=== PATIENT | male | born 1935 | race Caucasian/White ===

== ENCOUNTER 2020-02-28 17:56 | Inpatient (IN) | payer MEDICARE, BC ==
[~2020-02-28] VITALS: Ht 157.5 cm; Wt 55.1 kg
[2020-02-28 18:48] LABS: BASOPHILS 0.1 % (0-2); EOSINOPHILS 0.1 % (0-7); HEMATOCRIT 33.1 % (42.0-54.0); HEMOGLOBIN 10.1 g/dL (13.5-17.5); IMMATURE GRANULOCYTES 0.4 % (0-5); LYMPHOCYTES 5.5 % (15-50); MCH 28.5 pg (26.0-34.0); MCHC 30.5 g/dL (31.0-37.0); MCV 93.5 fL (80.0-100.0); MEAN PLATELET VOLUME 9.2 fL (7.4-10.4); MONOCYTES 11.6 % (2-11); NEUTROPHILS 82.3 % (40-80); PLATELET COUNT 442 10x3/uL (130-400); RBC 3.54 10x6/uL (4.20-6.10); RDW 15.5 % (11.5-14.5); WBC 15.8 10x3/uL (4.8-10.8)
[2020-02-28 18:57] LABS: INR 1.78 (0.85-1.17); PROTIME 20.5 SECONDS (11.6-15.0)
[2020-02-28 18:58] LABS: APTT 101.5 SECONDS (22.8-39.4)
[2020-02-28] MEDS ORDERED: CARAFATE1 G/10 ML PO (19:06)
[2020-02-28] MEDS ORDERED: FERROUS SULFAT325 MG PO (19:07)
[2020-02-28] MEDS ORDERED: LISINOPRIL5 MG PO (19:07)
[2020-02-28] MEDS ORDERED: ULTRAM50 MG PO (19:07)
[2020-02-28] MEDS ORDERED: FUROSEMIDE40 MG PO (19:07)
[2020-02-28] MEDS ORDERED: TOPROL XL50 MG PO (19:08)
[2020-02-28] MEDS ORDERED: LIPITOR10 MG PO (19:08)
[2020-02-28] MEDS ORDERED: ZOFRAN4 MG PO (19:09)
[2020-02-28] MEDS ORDERED: FAMOTIDINE10 MG PO (19:09)
--- NOTE | 2020-02-28 19:10 | NUR ---
BS REPORT TO ELVIA HEAD
[2020-02-28 19:21] LABS: CALC OSMOLALITY 334 mosm/kg (275-300); CARBON DIOXIDE 15.9 mmol/L (21.0-32.0); CHLORIDE - SERUM 114 mmol/L (98-107); CREATININE - SERUM 6.2 mg/dL (0.6-1.3); GLUCOSE 121 mg/dL (74-106); SODIUM 148 mmol/L (136-145); UREA NITROGEN 125 mg/dL (7-18); eGFR NON AFRICAN AMERICAN 9 mL/min (90-120)
[2020-02-28 19:27] LABS: BILIRUBIN NEGATIVE (NEGATIVE); GLUCOSE NEGATIVE (NEGATIVE); KETONE NEGATIVE (NEGATIVE); NITRITE NEGATIVE (NEGATIVE); SPECIFIC GRAVITY 1.015 (1.005-1.020); UROBILINOGEN NORMAL (NORMAL)
[2020-02-28 19:28] LABS: RED CELLS - URINE 0-5 /hpf (0-5); WHITE CELLS - URINE 0-5 /hpf (NEGATIVE)
[2020-02-28 19:29] LABS: BACTERIA FEW /hpf (NEGATIVE)
[2020-02-28 19:34] LABS: ALBUMIN 2.3 g/dL (3.4-5.0); ALKALINE PHOSPHATASE 71 U/L (30-120); ALT (SGPT) 29 U/L (10-68); CKMB 9.9 U/L (0.0-3.6); PROTEIN - SERUM 5.8 g/dL (6.4-8.2)
[2020-02-28 19:41] LABS: CREATINE KINASE 822 UL (21-232)
[2020-02-28 19:44] LABS: TROPONIN-I 0.081 ng/mL (0.000-0.060)
--- NOTE | 2020-02-28 20:30 | NUR ---
REC'D PATIENT FROM ER VIA STRETCHER. O2 AT 2L VIA NC. EYES OPEN, MOANING, GARBLED WORDS. UNABLE TO UNDERSTAND. NOT RESPONDING UNLESS MOVING. MED LOOSE RED BM X 2 ON ADMISSION. MULTIPLE SORES, CHARTED ON ASSESSMENT. LEGS STIFF.
[2020-02-28 21:00] VITALS: BP 92/56
--- NOTE | 2020-02-28 21:00 | NUR ---
SPOKE WITH BEATRICE CASTELLANOS, SON VIA PHONE. PASSWORD GIVEN. OBTAINED CONSENT FOR BLOOD. OBTAINED MEDS AND HISTORY FROM SON. SON STATES SHE WAS NOT IN A SNF. JOSEFINA OLIVAS APRN AND DR. MAGDALENO HERE.
[2020-02-28 21:14] LABS: HEMATOCRIT 32.2 % (42.0-54.0)
[2020-02-28 21:25] VITALS: BP 107/56; BMI 16.5
[2020-02-28 22:00] VITALS: BP 118/63
[2020-02-28 22:03] LABS: CKMB 4.4 U/L (0.0-3.6); CREATINE KINASE 855 UL (21-232)
[2020-02-28 22:04] LABS: TROPONIN-I 0.066 ng/mL (0.000-0.060)
[2020-02-28 23:00] VITALS: BP 122/59
--- NOTE | 2020-02-28 23:00 | NUR ---
RE-ASSESSMENT COMPLETED. NO CHANGES SINCE LAST ASSESSMENT. REPOSITIONED
[2020-02-29] VITALS (23 sets, daily range): BP systolic 93–156; BP diastolic 49–93; Ht 157.5 cm; Wt 55.1 kg
--- NOTE | 2020-02-29 01:00 | NUR ---
REPOSITIONED. SPEECH STILL GARBLED, PATIENT SAYING YES AND NO NOW
--- NOTE | 2020-02-29 03:00 | NUR ---
RE-ASSESSMENT COMPLETED. STILL NON VERBAL OTHER THAN SAYING YES BUT NOT APPROPRIATELY.
[2020-02-29 04:50] LABS: BASOPHILS 0 % (0-2); EOSINOPHILS 0.1 % (0-7); HEMATOCRIT 30.7 % (42.0-54.0); HEMOGLOBIN 9.3 g/dL (13.5-17.5); IMMATURE GRANULOCYTES 0.7 % (0-5); LYMPHOCYTES 7.4 % (15-50); MCH 27.7 pg (26.0-34.0); MCHC 30.3 g/dL (31.0-37.0); MEAN PLATELET VOLUME 9.3 fL (7.4-10.4); MONOCYTES 7.2 % (2-11); NEUTROPHILS 84.6 % (40-80); PLATELET COUNT 423 10x3/uL (130-400); RBC 3.36 10x6/uL (4.20-6.10); RDW 15.6 % (11.5-14.5); WBC 13.5 10x3/uL (4.8-10.8)
[2020-02-29 04:51] LABS: MCV 91.4 fL (80.0-100.0)
--- NOTE | 2020-02-29 05:00 | NUR ---
REPOSITIONED AND ORAL CARE PROVIDED
[2020-02-29 05:10] LABS: APTT 118.7 SECONDS (22.8-39.4)
[2020-02-29 05:14] LABS: INR 2.33 (0.85-1.17); PROTIME 25.2 SECONDS (11.6-15.0)
[2020-02-29 06:07] LABS: ALBUMIN 2.1 g/dL (3.4-5.0); ALKALINE PHOSPHATASE 67 U/L (30-120); ALT (SGPT) 29 U/L (10-68); BILIRUBIN - TOTAL 0.31 mg/dL (0.2-1.3); CALC OSMOLALITY 318 mosm/kg (275-300); CALCIUM 8.1 mg/dL (8.5-10.1); CARBON DIOXIDE 14.9 mmol/L (21.0-32.0); CHLORIDE - SERUM 114 mmol/L (98-107); CKMB 11.4 U/L (0.0-3.6); CREATININE - SERUM 5.9 mg/dL (0.6-1.3); GLUCOSE 102 mg/dL (74-106); MAGNESIUM - SERUM 2.7 mg/dL (1.8-2.4); PHOSPHOROUS 6.1 mg/dL (2.5-4.9); PRO BNP 4663 pg/mL (0-450); PROTEIN - SERUM 6.2 g/dL (6.4-8.2); SODIUM 141 mmol/L (136-145); THYROID STIMULATING HORMONE 1.93 uIU/mL (0.36-3.74); UREA NITROGEN 120 mg/dL (7-18); VANCOMYCIN - RANDOM 16.7 ug/mL (10.0-20.0); eGFR NON AFRICAN AMERICAN 10 mL/min (90-120)
[2020-02-29 06:08] LABS: CREATINE KINASE 853 UL (21-232); POTASSIUM - SERUM 4.1 mmol/L (3.5-5.1); TROPONIN-I 0.092 ng/mL (0.000-0.060)
--- NOTE | 2020-02-29 08:15 | NUR ---
PT OPENS EYES WHEN SPOKEN TO. CONTRACTURES TO UPPER AND LOWER EXTREMITIES. TURNED AND REPOSITIONED FOR COMFORT. VSS. MED SURG NURSE FOR RENAL HERE.
[2020-02-29 10:43] LABS: HEMATOCRIT 30.2 % (42.0-54.0); HEMOGLOBIN 9.3 g/dL (13.5-17.5)
[2020-02-29 11:23] LABS: CKMB 16.1 U/L (0.0-3.6)
[2020-02-29 11:24] LABS: CREATINE KINASE 1069 UL (21-232); TROPONIN-I 0.094 ng/mL (0.000-0.060)
--- NOTE | 2020-02-29 12:24 | NUR ---
SPOKE TO PTS SON BEATRICE ON PHONE. UPDATE GIVEN AND HE STATES THAT SHE SHOULD NOT BE A FULL CODE. HE STATES THAT SHE IS A DNR.
--- NOTE | 2020-02-29 12:36 | NUR ---
HR 170BPM, BP 70/40. DR PASCUAL HERE. SODIUM BICARG GIVEN AND DIG GIVEN ORDERED. BP 98/75. PAGED DR CHACON. ABG'S DONE AND DR PASCUAL HERE FOR RESULTS. CONSULTED CARDIOLOGY. SPOKE TO DR COTO. REC'D ORDERS.
--- NOTE | 2020-02-29 12:44 | NUR ---
HR 138, BP 109/73.
[2020-02-29 13:50] LABS: BASOPHILS 0.1 % (0-2); EOSINOPHILS 0.2 % (0-7); HEMATOCRIT 26.9 % (42.0-54.0); HEMOGLOBIN 8.2 g/dL (13.5-17.5); IMMATURE GRANULOCYTES 0.9 % (0-5); LYMPHOCYTES 8.3 % (15-50); MCH 27.9 pg (26.0-34.0); MCHC 30.5 g/dL (31.0-37.0); MCV 91.5 fL (80.0-100.0); MEAN PLATELET VOLUME 9.3 fL (7.4-10.4); NEUTROPHILS 83.5 % (40-80); PLATELET COUNT 378 10x3/uL (130-400); RBC 2.94 10x6/uL (4.20-6.10); RDW 15.5 % (11.5-14.5)
[2020-02-29 13:57] LABS: ALBUMIN 1.8 g/dL (3.4-5.0); ANION GAP 20.8 mmol/L (8-16); BILIRUBIN - TOTAL 0.28 mg/dL (0.2-1.3); CALCIUM 7.8 mg/dL (8.5-10.1); POTASSIUM - SERUM 3.8 mmol/L (3.5-5.1); PROTEIN - SERUM 5.3 g/dL (6.4-8.2)
[2020-02-29 14:08] LABS: INR 1.66 (0.85-1.17); PROTIME 19.4 SECONDS (11.6-15.0)
--- NOTE | 2020-02-29 15:27 | NUR ---
VSS, AMIODARONE GTT INFUSING AT 1MG/MIN. ST 105.
--- NOTE | 2020-02-29 15:28 | NUR ---
CALLED POSITIVE STOOL CULT TO DR ARREDONDO. CALLED CMP TO DR PASCUAL. IVF CHANGED.
--- NOTE | 2020-02-29 16:48 | NUR ---
BLOOD TRANSFUSION BEGAN. 1ST OVERLAY MATTRESS APPLIED. PT INC OF STOOL. BATHED AND LINENS CHANGED.
--- NOTE | 2020-02-29 19:00 | NUR ---
REPORT RECEIVED ASSESSMENT COMPLETE. PT CONFUSED ASKING "WHERE AM I" ORIENTED TO UNIT TIME AND SITUATION. PT HAS DRESSING TO COCCYX CHEYANNE HIPS WITH REDDENED AREAS MEPILEX ADDED FOR PADDING PT HAS SORES TO LEGS AND REDDENED AREAS TO HEELS. HEEL PROTECTORS APPLIED. CM READING AFIB AMIODARONE GTT CONTINUES. WILL CONTINUE TO MONITOR
--- NOTE | 2020-02-29 21:20 | NUR ---
DR PASCUAL HERE NEW ORDERS NOTED
[2020-02-29 21:25] LABS: HEMATOCRIT 31.6 % (42.0-54.0)
[2020-02-29 21:43] LABS: HEMOGLOBIN 10.1 g/dL (13.5-17.5)
--- NOTE | 2020-02-29 23:00 | NUR ---
REASSESSMENT COMPLETE. AMIO GTT NOW AT 0.5MG/MIN PER ORDERS NO OTHER CHANGES CPOC
[2020-03-01] VITALS (24 sets, daily range): BP systolic 111–166; BP diastolic 57–107
--- NOTE | 2020-03-01 03:00 | NUR ---
REASSESSMENT COMPLETE. ABLE TO UNDERSTAND PT MORE AT THIS TIME SPOKE ABOUT HER SONS CALLING AND CHECKING ON HER AND THAT BEATRICE WANTED HER TO KNOW HE WOULD BE HERE BUT DUE TO INFECTION AND VIRUS NO VISITORS WERE ALLOWED.
[2020-03-01 03:29] LABS: BASOPHILS 0.2 % (0-2); EOSINOPHILS 0.4 % (0-7); HEMATOCRIT 31.6 % (42.0-54.0); LYMPHOCYTES 7.7 % (15-50); MCH 28.6 pg (26.0-34.0); MCHC 31.6 g/dL (31.0-37.0); MCV 90.3 fL (80.0-100.0); MEAN PLATELET VOLUME 9.5 fL (7.4-10.4); MONOCYTES 8.8 % (2-11); NEUTROPHILS 80.9 % (40-80); PLATELET COUNT 376 10x3/uL (130-400); RDW 15.7 % (11.5-14.5); WBC 17.1 10x3/uL (4.8-10.8)
[2020-03-01 03:59] LABS: BILIRUBIN - TOTAL 0.41 mg/dL (0.2-1.3); CALCIUM 7.9 mg/dL (8.5-10.1); CARBON DIOXIDE 19.2 mmol/L (21.0-32.0); MAGNESIUM - SERUM 2.5 mg/dL (1.8-2.4); PHOSPHOROUS 3.6 mg/dL (2.5-4.9); POTASSIUM - SERUM 3.3 mmol/L (3.5-5.1); PROTEIN - SERUM 5.6 g/dL (6.4-8.2); VANCOMYCIN - RANDOM 26.6 ug/mL (10.0-20.0)
[2020-03-01 04:00] LABS: ANION GAP 17.1 mmol/L (8-16)
--- NOTE | 2020-03-01 06:15 | NUR ---
PT LEFT 18 GUAGE IV WAS OUT. BLEEDING PRESSURE HELD DRESSING APPLIED. COMPLETE CHG AND LINEN CHANGE PT HAD SMALL SMEAR OF DARK STOOL.
--- NOTE | 2020-03-01 09:10 | NUR ---
new order from rajeev adame to increase lr to 75
[2020-03-01 09:20] LABS: HEMOGLOBIN 10.3 g/dL (13.5-17.5)
--- NOTE | 2020-03-01 09:24 | NUR ---
dr longoria at beside
--- NOTE | 2020-03-01 11:21 | NUR ---
spoke with son. confirmed dnr.
--- NOTE | 2020-03-01 11:25 | NUR ---
ok with dr valerio if we transfer to floor
[2020-03-01 14:57] LABS: HEMATOCRIT 31.7 % (42.0-54.0)
--- NOTE | 2020-03-01 15:30 | NUR ---
patient had little bm
--- NOTE | 2020-03-01 15:31 | NUR ---
1200-dr voice at bedside
--- NOTE | 2020-03-01 16:01 | NUR ---
PATIENT HAS DRY MOUTH. SWABBED WITH DAMP SPONGE. CRACKED LIPS SO I APPLIED CHAPSTICK
--- NOTE | 2020-03-01 19:00 | NUR ---
Report received from off going nurse. Pt is laying in bed with eyes open. Initial assessment completed, see flowsheet for details. Pt is badly contracted, also very confused to place, time, and situation. Repositioned for comfort. Oral care performed. No further needs at this time. No s/s of distress noted. Will continue to monitor.
--- NOTE | 2020-03-01 21:00 | NUR ---
Pt is laying in bed with eyes closed at this time. Repositioned for comfort. Oral care performed. No further needs noted. No s/s of distress. Will continue to monitor.
--- NOTE | 2020-03-01 23:00 | NUR ---
Reassessment completed, see flowsheet for details. Pt is laying in bed with eyes closed. Repositioned for comfort. Oral care performed. No s/s of distress. Will continue to monitor.
[2020-03-02] VITALS (24 sets, daily range): BP systolic 126–177; BP diastolic 67–131
--- NOTE | 2020-03-02 01:00 | NUR ---
Pt is laying in bed with eyes closed. Repositioned for comfort. Oral care performed. No further needs noted. No s/s of distress noted. Will continue to monitor.
[2020-03-02 03:45] LABS: BASOPHILS 0.2 % (0-2); EOSINOPHILS 1.6 % (0-7); HEMATOCRIT 32.6 % (42.0-54.0); HEMOGLOBIN 10.2 g/dL (13.5-17.5); IMMATURE GRANULOCYTES 4.3 % (0-5); LYMPHOCYTES 9.4 % (15-50); MCHC 31.3 g/dL (31.0-37.0); MCV 89.6 fL (80.0-100.0); MEAN PLATELET VOLUME 9.2 fL (7.4-10.4); MONOCYTES 8.4 % (2-11); NEUTROPHILS 76.1 % (40-80); PLATELET COUNT 383 10x3/uL (130-400); RBC 3.64 10x6/uL (4.20-6.10); RDW 16.1 % (11.5-14.5)
[2020-03-02 04:03] LABS: ANION GAP 15.4 mmol/L (8-16); BILIRUBIN - TOTAL 0.27 mg/dL (0.2-1.3); CALCIUM 8.1 mg/dL (8.5-10.1); CARBON DIOXIDE 19.1 mmol/L (21.0-32.0); MAGNESIUM - SERUM 2.1 mg/dL (1.8-2.4); POTASSIUM - SERUM 4.5 mmol/L (3.5-5.1); PROTEIN - SERUM 5.6 g/dL (6.4-8.2); VANCOMYCIN - RANDOM 18.3 ug/mL (10.0-20.0)
[2020-03-02 04:12] LABS: CREATININE - SERUM 2.7 mg/dL (0.6-1.3); PHOSPHOROUS 2.3 mg/dL (2.5-4.9)
--- NOTE | 2020-03-02 08:49 | NUR ---
Nutrition follow-up: Pt remains NPO Wt: 117# -> up from 89# on admit Labs reviewed Will need nutrition support started within 24-48 hours if pt remains NPO RDN following.
--- NOTE | 2020-03-02 10:30 | NUR ---
0700 AWAKE ALERT CONFUSED ASSESSMENT COMPLETE LEGS CONTRACTED PATIENT SCREAME WHEN TURNING IN BED
--- NOTE | 2020-03-02 10:32 | NUR ---
1025 DR PEDROZA AT BEDSIDE UP-DATE PROVIDED
--- NOTE | 2020-03-02 10:32 | NUR ---
0900 REPOSITIONED USED PILLOWS TO SUPPORT BODY YELLING TO TOUCH
--- NOTE | 2020-03-02 12:59 | NUR ---
1100 HCG BATH COMPLETE WOUND CARE NURSE PRESENT TO ASSESS WOUNDS ON CHEYANNE FEET SMALL SMEAR DARK SOFT STOOL NOTED
--- NOTE | 2020-03-02 13:00 | NUR ---
1300 NOTIFIED PHARMACIST VANCO LEVEL 18.8 AND CREATININE 2.7 SAID TO GO AHEAD AND INFUSE VANCOMYCIN 1 GRAM TODAY AND WILL RECHECK VANCO LEVEL TOMORROW 03/03
--- NOTE | 2020-03-02 13:02 | NUR ---
1200 ST MAXINE AT BEDSIDE FOR SWALLOW STUDY RECOMMENDS PEG TUBE DIETARY CONSULT NOTED ATTEMPTED TO NOTIFY FAMILY CALLED BOTH SONS BY PHONE AND LEFT MESSAGE
--- NOTE | 2020-03-02 13:26 | NUR ---
1300 NGT PLACED TO RIGHT NARE 16fr ABD XR ORDERED FOR PLACEMENT BOLUS 10ML AIR TEST POSITIVE
--- NOTE | 2020-03-02 13:35 | NUR ---
1310 ORDER FOR PEG TUBE PLACEMENT NOTIFIED SHEARING MACHINE FEEDER DR ARIAS ACKNOWLEDGED
--- NOTE | 2020-03-02 13:37 | NUR ---
0706 PHONE CONSENTS FOR PEG PROCEEDURE TOMORROW SIGNED BY NATHANIEL CASTELLANOS, THE PATIENTS SON
--- NOTE | 2020-03-02 13:41 | NUR ---
PT WAS ADMITTED TO ICU ON 02/28/2020 COMING FROM ANOTHER HOSPITAL. SHE RESIDED IN A NH. 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 SHE IS INCONTINENT OF BOWEL AND BLADDER. THERE IS A STAGE 3 PRESSURE INJURY ON COCCYX MEASURING 4CM X 2.5CM X 1CM WITH A 1CM TUNNEL @ 12-1 OCLOCK. BOTH HIPS HAVE REDDENED AREAS THAT RAY AT THIS TIME. LEFT LEG HAS SEVERAL OPEN AREAS OF SKIN ON THE MEDIAL ASPECT. BOTH FEET SHOW DUSKY DISCOLORATION. RECOMMENDATIONS: -AIR OVERLAY MATTRESS AND TURN/REPOSITION Q 2 HOURS -WET TO DRY DRESSING USING SALINE TO WOUND ON COCCYX -APPLICATION OF SMALL SIZED MEPILEX BORDER SACRAL TO BOTH HIPS FOR PROTECTION -ADAPTIC TO COVER OPEN AREAS ON LEFT LEG, FOLLOWED BY DRY 4X4S AND KERLIX -PILLOWS BETWEEN KNEES -HEELS AND ANKLES FLOATED OFF MATTRESS WOUND CARE WILL CONTINUE MONITORING.
--- NOTE | 2020-03-02 15:52 | NUR ---
1500 BLACK TARRY THICK STOOL NOTED CHANGED ALL LINENS AND REPOSITIONED ON RIGHT SIDE ORAL AND FACIAL CAR PROVIDED
--- NOTE | 2020-03-02 19:00 | NUR ---
Report received from off going nurse. Pt is laying in bed with eyes closed. Repositioned for comfort. Oral care performed. NO further needs noted. No s/s of distress. Will continue to monitor.
--- NOTE | 2020-03-02 20:28 | MORECARE ---
CASE MANAGEMENT DISCHARGE SUMMARY PATIENT: LUIS CASTELLANOS UNIT: [id number] ADM DATE: 02/28/20 AGE: 84 : 35 SEX: M ROOM/BED: D.2302 AUTHOR: SILVESTRE THAPA PHYSICIAN: REFERRING PHYSICIAN: KEYONA RAMOS MD DATE OF SERVICE: 03/02/20 Discharge Plan Patient Name: LUIS CASTELLANOS [facility] [facility] 1935 Planned Disposition: Anticipated Discharge Date: Discharge Date: Expected LOS: Initial Reviewer: [email or web address] Initial Review Date: 02/28/2020 Generated: 03/02/20 9:27 pm DCPIA - Discharge Planning Initial Assessment Updated by [email or web address]: Elli Dorantes on 03/02/20 8:26 pm * Is the patient Alert and Oriented? No * How many steps to enter\exit or inside your home? Patient Name: LUIS CASTELLANOS Page [phone] at 2027 All edits/amendments must be made on the electronic document DICTATION DATE: 03/02/202027 DAY LIGHT RELIEF OPERATOR: FEDE 03/02/202027 RPT#: [id number] DC DATE: STATUS: ADM IN [facility] [address] [place] [address] END OF REPORT
--- NOTE | 2020-03-02 20:34 | MORECARE ---
CASE MANAGEMENT DISCHARGE SUMMARY PATIENT: LUIS CASTELLANOS UNIT: [id number] ADM DATE: 02/28/20 AGE: 84 : 35 SEX: M ROOM/BED: D.2302 AUTHOR: SILVESTRE THAPA PHYSICIAN: REFERRING PHYSICIAN: KEYONA RAMOS MD DATE OF SERVICE: 03/02/20 Discharge Plan Patient Name: LUIS CASTELLANOS Facility: [facility]:[place] : 1935 Planned Disposition: Anticipated Discharge Date: Discharge Date: Expected LOS: Initial Reviewer: [email or web address] Initial Review Date: 02/28/2020 Generated: 03/02/20 9:34 pm Comments DCP- Discharge Planning Updated by [email or web address]: Elli Dorantes on 03/02/20 7:[address] PATIENT IS UNABLE TO COMPLETE DISCHARGE PLANNING ASSESSMENT. PATIENT WAS IN A SKILLED FACILITY ? [place] ? CM TRIED TO CONTACT BOTH SONS LISTED CONTACTS AND DID NOT GET AND ANSWER. CM WILL CONTINUE TO FOLLOW AND ASSIST NEEDED WITH DISCHARGE PLANNING / NEEDS. DCPIA - Discharge Planning Initial Assessment Updated by [email or web address]: Elli Dorantes on 03/02/20 8:26 pm * Is the patient Alert and Oriented? No * How many steps to enter\exit or inside your home? Last DP export: 03/02/20 7:28 pm Patient Name: LUIS CASTELLANOS Page [phone] at 2033 All edits/amendments must be made on the electronic document DICTATION DATE: 03/02/202033 VIAL GAUGER: FEDE 03/02/202033 RPT#: [id number] DC DATE: STATUS: ADM IN [facility] [address] [place] [address] END OF REPORT
--- NOTE | 2020-03-02 21:00 | NUR ---
Pt is laying in bed with eyes closed. Repostioned for comfort. Oral care performed. NO s/s of distress noted. Will continue to monitor.
--- NOTE | 2020-03-02 23:00 | NUR ---
Reassessment completed, see flowsheet for details. Pt is laying in bed with eyes closed. Repositioned for comfort. Oral care performed. No s/s of distress noted. Will continue to monitor.
[2020-03-03] VITALS (10 sets, daily range): BP systolic 112–177; BP diastolic 51–114
--- NOTE | 2020-03-03 01:00 | NUR ---
Pt is laying in bed with eyes closed. Repositioned for comfort. Oral care performed. NO s/s of distress noted. Will continue to monitor.
--- NOTE | 2020-03-03 03:00 | NUR ---
Reassessment completed, see flowsheet for details. Pt is laying in bed with eyes closed. Repositioned for comfort. Oral care performed. NO s/s of distress. Will continue to monitor.
[2020-03-03 04:22] LABS: ALBUMIN 1.8 g/dL (3.4-5.0); ANION GAP 14.9 mmol/L (8-16); BILIRUBIN - TOTAL 0.17 mg/dL (0.2-1.3); CALCIUM 7.5 mg/dL (8.5-10.1); CARBON DIOXIDE 19.1 mmol/L (21.0-32.0); MAGNESIUM - SERUM 1.6 mg/dL (1.8-2.4); PHOSPHOROUS 2.8 mg/dL (2.5-4.9); PROTEIN - SERUM 5.1 g/dL (6.4-8.2); VANCOMYCIN - RANDOM 22.6 ug/mL (10.0-20.0)
[2020-03-03 04:24] LABS: HEMATOCRIT 30.9 % (42.0-54.0); HEMOGLOBIN 9.7 g/dL (13.5-17.5); MCH 28.4 pg (26.0-34.0); MCHC 31.4 g/dL (31.0-37.0); MCV 90.6 fL (80.0-100.0); PLATELET COUNT 334 10x3/uL (130-400); RBC 3.41 10x6/uL (4.20-6.10); RDW 16.3 % (11.5-14.5); WBC 10.3 10x3/uL (4.8-10.8)
[2020-03-03 04:33] LABS: CREATININE - SERUM 1.9 mg/dL (0.6-1.3)
[2020-03-03 04:43] LABS: EOSINOPHILS 2 % (0-7); LYMPHOCYTES 14 % (15-50); MONOCYTES 2 % (2-11); NEUTROPHILS 81 % (40-80); PLATELET ESTIMATE NORMAL
--- NOTE | 2020-03-03 08:55 | NUR ---
BRONCH DONE DURING THIS TIME
--- NOTE | 2020-03-03 08:56 | NUR ---
GI LAB DONE AT APPROXIMATELY 0830. DR CAI AT [facility] DURING THIS TIME. NO NEW ORDERS. ABD BINDER APPLIED
--- NOTE | 2020-03-03 08:56 | NUR ---
BRONCH DONE AT THIS TIME. DR MORRISON AT BEDSIDE
--- NOTE | 2020-03-03 09:39 | NUR ---
OK TO USE PEG TUBE TA [address] ZHANG
--- NOTE | 2020-03-03 09:51 | NUR ---
son stated that patient was in rehab [facility]
--- NOTE | 2020-03-03 13:49 | NUR ---
CHG BATH GIVEN AND TURNED. BOTTOM EXAMINED WHEN MEPILEX REMOVED. COCCYX WOUND IS TUNNELING AND APPEARS TO BE TENDONS IN SIGHT. WOUND IS ABOUT THE SIZE OF A ALFREDO THAT IS OPEN TO AIR. MEPILEX APPLIED AND ON AIR OVERLAY.
--- NOTE | 2020-03-03 17:24 | NUR ---
OT NOTE: PT COMPLETED UE PROM TOLERATED AND WITHIN AVAILABLE ROM TO INCREASE POSITIONING AND DECREASE AREAS OF PRESSURE. [phone] THANK YOU,RICHARD PENA
--- NOTE | 2020-03-03 17:44 | NUR ---
REPORT CALLED TO LATOSHA
--- NOTE | 2020-03-03 18:00 | NUR ---
RECEIVED PT FROM ICU.
--- NOTE | 2020-03-03 18:23 | NUR ---
DID PT QUICK START. UNABLE TO RECONCILE MEDICATION DUE TO THE PATIENTS INABILITY TO COMMUNICATE WITH ME. WILL PASS INFO TO PROFESSIONAL ORGANIZER. TRY TO CONTACT FAMILY TOMORROW DURING THE DAY. PT IS COMFORTABLE IN BED. WILL CONTINUE TO MONITOR.
--- NOTE | 2020-03-03 20:23 | MORECARE ---
CASE MANAGEMENT DISCHARGE SUMMARY PATIENT: LUIS CASTELLANOS UNIT: [id number] ADM DATE: 02/28/20 AGE: 84 : 35 SEX: M ROOM/BED: D.2106 AUTHOR: SILVESTRE THAPA PHYSICIAN: REFERRING PHYSICIAN: KEYONA RAMOS MD DATE OF SERVICE: 03/03/20 Discharge Plan Patient Name: LUIS CASTELLANOS Facility: [facility]:[place] : 1935 Planned Disposition: Home with Home Health Anticipated Discharge Date: Discharge Date: Expected LOS: Initial Reviewer: [email or web address] Initial Review Date: 02/28/2020 Generated: 03/03/20 9:22 pm DCP- Discharge Planning Updated by [email or web address]: Elli Dorantes on 03/02/20 7:[address] PATIENT IS UNABLE TO COMPLETE DISCHARGE PLANNING ASSESSMENT. PATIENT WAS IN A SKILLED FACILITY ? [place] ? CM TRIED TO CONTACT BOTH SONS LISTED CONTACTS AND DID NOT GET AND ANSWER. CM WILL CONTINUE TO FOLLOW AND ASSIST NEEDED WITH DISCHARGE PLANNING / NEEDS. DCPIA - Discharge Planning Initial Assessment Updated by [email or web address]: Elli Dorantes on 03/02/20 8:26 pm * Is the patient Alert and Oriented? No * How many steps to enter\exit or inside your home? Last DP export: 03/02/20 7:34 pm Patient Name: LUIS CASTELLANOS Page [phone] at 2022 All edits/amendments must be made on the electronic document DICTATION DATE: 03/03/202021 MANAGER TRANSPORTATION: FEDE 03/03/202021 RPT#: [id number] DC DATE: STATUS: [facility] [address] [place] [address] END OF REPORT
--- NOTE | 2020-03-03 20:30 | MORECARE ---
CASE MANAGEMENT DISCHARGE SUMMARY PATIENT: LUIS CASTELLANOS UNIT: [id number] ADM DATE: 02/28/20 AGE: 84 : 35 SEX: M ROOM/BED: D.2106 AUTHOR: ELIER,DOC PHYSICIAN: REFERRING PHYSICIAN: KEYONA RAMOS MD DATE OF SERVICE: 03/03/20 Discharge Plan Patient Name: LUIS CASTELLANOS Facility: [facility]:[place] : 1935 Planned Disposition: Home with Home Health Anticipated Discharge Date: Discharge Date: Expected LOS: Initial Reviewer: [email or web address] Initial Review Date: 02/28/2020 Generated: 03/03/20 9:29 pm DCP- Discharge Planning Updated by [email or web address]: Elli Dorantes on 03/02/20 7:[address] PATIENT IS UNABLE TO COMPLETE DISCHARGE PLANNING ASSESSMENT. PATIENT WAS IN A SKILLED FACILITY ? [place] ? CM TRIED TO CONTACT BOTH SONS LISTED CONTACTS AND DID NOT GET AND ANSWER. CM WILL CONTINUE TO FOLLOW AND ASSIST NEEDED WITH DISCHARGE PLANNING / NEEDS. DCPIA - Discharge Planning Initial Assessment Updated by [email or web address]: Elli Dorantes on 03/03/20 8:26 pm * Is the patient Alert and Oriented? No * How many steps to enter\exit or inside your home? * PCP DALTON DRAKE * Pharmacy [facility] * Preadmission Environment Home with Family * ADLs Partial Dependent * Partial ADLs (Assistance needed) Ambulation Bathing Dressing Eating Medication Management Toileting Transfers * Other Equipment HOME/PORTABLE 02, NEBULZER, HOSPITAL BED, W/C, WALKER * List name and contact numbers for known caregivers / representatives who currently or will assist patient after discharge: MARIA ISABEL CASTELLANOS - [place] - [phone] KEYONAZACH CASTELLANOS - KRANTHI -[phone] * Verbal permission to speak to the caregivers and representatives has been obtained from the patient. N/A * Community resources currently utilized Home Health * Please name any agencies selected above. [facility] [phone] * Additional services required to return to the preadmission environment? No * Can the patient safely return to the preadmission environment? Yes * Has this patient been hospitalized within the prior 30 days at any hospital? No Last DP export: 03/03/20 7:23 pm Patient Name: LUIS CASTELLANOS Page [phone] at 2030 All edits/amendments must be made on the electronic document DICTATION DATE: 03/03/202028 LEATHER ETCHER: FEDE 03/03/202028 RPT#: [id number] DC DATE: STATUS: ADM IN [facility] [address] [place] [address] END OF REPORT
--- NOTE | 2020-03-03 20:36 | MORECARE ---
CASE MANAGEMENT DISCHARGE SUMMARY PATIENT: LUIS CASTELLANOS UNIT: [id number] ADM DATE: 02/28/20 AGE: 84 : 35 SEX: M ROOM/BED: D.2106 AUTHOR: ELIER,DOC PHYSICIAN: REFERRING PHYSICIAN: KEYONA RAMOS MD DATE OF SERVICE: 03/03/20 Discharge Plan Patient Name: LUIS CASTELLANOS Facility: [facility]:[place] : 1935 Planned Disposition: Home with Home Health Anticipated Discharge Date: Discharge Date: Expected LOS: Initial Reviewer: [email or web address] Initial Review Date: 02/28/2020 Generated: 03/03/20 9:36 pm Comments DCP- Discharge Planning Updated by [email or web address]: Elli Dorantes on 03/03/20 7:[address] Patient Name: LUIS CASTELLANOS Admission Status: ER Accout number: [id number] Admission Date: 02-28-2020 : 1935 Admission Diagnosis:SEPSIS, UNSPECIFIED ORGANISM Attending: ALTON Current LOS: 4 Anticipated DC Date: Planned Disposition: Home with Home Health Primary Insurance: MEDICARE A & B Discharge Planning Comments: CM called and spoke with patient's son Keon to complete initial dc planning assessment. CM educated patient on the CM role and verbal consent given by patient to complete assessment. Patient lives at home with her son where she is mostly total care in the last few months. At discharge plans to return home with home health ([place]) DINA completed and feels this is a safe discharge. CM discussed availability of home health, rehab services, and medical equipment. Patient has a nebulizer, home 02, hospital bed, walker, and w/c. Keon denied known discharge needs at this time. CM will continue to follow and will assist as needed with dc plans/needs. Advanced Nursing Professor: Elli Dorantes Appended by Elli Dorantes on 03/03/2020 20:35 CDT: Patient will need DINA completed for infusion company for tube feeding DCP- Discharge Planning Updated by [email or web address]: Elli Dorantes on 03/02/20 7:[address] PATIENT IS UNABLE TO COMPLETE DISCHARGE PLANNING ASSESSMENT. PATIENT WAS IN A SKILLED FACILITY ? [place] ? CM TRIED TO CONTACT BOTH SONS LISTED CONTACTS AND DID NOT GET AND ANSWER. CM WILL CONTINUE TO FOLLOW AND ASSIST NEEDED WITH DISCHARGE PLANNING / NEEDS. DCPIA - Discharge Planning Initial Assessment Updated by [email or web address]: Elli Dorantes on 03/03/20 8:26 pm * Is the patient Alert and Oriented? No * How many steps to enter\exit or inside your home? * PCP DALTON DRAKE * Pharmacy [facility] * Preadmission Environment Home with Family * ADLs Partial Dependent * Partial ADLs (Assistance needed) Ambulation Bathing Dressing Eating Medication Management Toileting Transfers * Other Equipment HOME/PORTABLE 02, NEBULZER, HOSPITAL BED, W/C, WALKER * List name and contact numbers for known caregivers / representatives who currently or will assist patient after discharge: MARIA ISABEL CASTELLANOS - SON - [phone] KEON CASTELLANOS - SON -[phone] * Verbal permission to speak to the caregivers and representatives has been obtained from the patient. N/A * Community resources currently utilized Home Health * Please name any agencies selected above. [facility] [phone] * Additional services required to return to the preadmission environment? No * Can the patient safely return to the preadmission environment? Yes * Has this patient been hospitalized within the prior 30 days at any hospital? No Last DP export: 03/03/20 7:30 pm Patient Name: LUIS CASTELLANOS Page [phone] at 203 All edits/amendments must be made on the electronic document DICTATION DATE: 03/03/202034 FORESTRY FACULTY MEMBER: FEDE 03/03/202034 RPT#: [id number] DC DATE: STATUS: ADM IN [facility] [address] [place] [address] END OF REPORT
--- NOTE | 2020-03-03 20:48 | MORECARE ---
CASE MANAGEMENT DISCHARGE SUMMARY PATIENT: LUIS CASTELLANOS UNIT: [id number] ADM DATE: 02/28/20 AGE: 84 : 35 SEX: M ROOM/BED: D.2106 AUTHOR: ELIER,DOC PHYSICIAN: REFERRING PHYSICIAN: KEYONA RAMOS MD DATE OF SERVICE: 03/03/20 Discharge Plan Patient Name: LUIS CASTELLANOS Facility: [facility]:[place] : 1935 Planned Disposition: Home with Home Health Anticipated Discharge Date: Discharge Date: Expected LOS: Initial Reviewer: [email or web address] Initial Review Date: 02/28/2020 Generated: 03/03/20 9:48 pm Comments DCP- Discharge Planning Updated by [email or web address]: Elli Dorantes on 03/03/20 7:[address] Patient Name: LUIS CASTELLANOS Admission Status: ER Accout number: [id number] Admission Date: 02-28-2020 : 1935 Admission Diagnosis:SEPSIS, UNSPECIFIED ORGANISM Attending: ALTON Current LOS: 4 Anticipated DC Date: Planned Disposition: Home with Home Health Primary Insurance: MEDICARE A & B Discharge Planning Comments: CM called and spoke with patient's son Keon to complete initial dc planning assessment. CM educated patient on the CM role and verbal consent given by patient to complete assessment. Patient lives at home with her son where she is mostly total care in the last few months. At discharge plans to return home with home health ([place]) DINA completed and feels this is a safe discharge. CM discussed availability of home health, rehab services, and medical equipment. Patient has a nebulizer, home 02, hospital bed, walker, and w/c. Keon denied known discharge needs at this time. CM will continue to follow and will assist as needed with dc plans/needs. Web Manager: Elli Dorantes Appended by Elli Dorantes on 03/03/2020 20:35 CDT: Patient will need DINA completed for infusion company for tube feeding DCP- Discharge Planning Updated by [email or web address]: Elli Dorantes on 03/02/20 7:[address] PATIENT IS UNABLE TO COMPLETE DISCHARGE PLANNING ASSESSMENT. PATIENT WAS IN A SKILLED FACILITY ? [place] ? CM TRIED TO CONTACT BOTH SONS LISTED CONTACTS AND DID NOT GET AND ANSWER. CM WILL CONTINUE TO FOLLOW AND ASSIST NEEDED WITH DISCHARGE PLANNING / NEEDS. DCPIA - Discharge Planning Initial Assessment Updated by [email or web address]: Elli Dorantes on 03/03/20 8:26 pm * Is the patient Alert and Oriented? No * How many steps to enter\exit or inside your home? * PCP DALTON DRAKE * Pharmacy [facility] * Preadmission Environment Home with Family * ADLs Partial Dependent * Partial ADLs (Assistance needed) Ambulation Bathing Dressing Eating Medication Management Toileting Transfers * Other Equipment HOME/PORTABLE 02, NEBULZER, HOSPITAL BED, W/C, WALKER * List name and contact numbers for known caregivers / representatives who currently or will assist patient after discharge: MARIA ISABEL CASTELLANOS - [place] - [phone] KEON CASTELLANOS - KRANTHI -[phone] * Verbal permission to speak to the caregivers and representatives has been obtained from the patient. N/A * Community resources currently utilized Home Health * Please name any agencies selected above. [facility] [phone] * Additional services required to return to the preadmission environment? No * Can the patient safely return to the preadmission environment? Yes * Has this patient been hospitalized within the prior 30 days at any hospital? No External Providers External Provider: [facility] Next Contact Date: Service Request Date: Service Type: Resolution: Reviewer: Comments: Last DP export: 03/03/20 7:36 pm Patient Name: LUIS CASTELLANOS Page [phone] at 2048 All edits/amendments must be made on the electronic document DICTATION DATE: 03/03/202047 DIRECTOR VOICE: FEDE 03/03/202047 RPT#: [id number] [place] DATE: STATUS: ADM IN [facility] [address] [place] [address] END OF REPORT
[2020-03-04] VITALS: BP 131/66
--- NOTE | 2020-03-04 00:35 | NUR ---
TIMBER CUTTER AT BED SIDE TO OBTAIN VITALS.
[2020-03-04 04:00] VITALS: BP 128/73
[2020-03-04 05:49] LABS: ALBUMIN 1.9 g/dL (3.4-5.0); ANION GAP 12.9 mmol/L (8-16); BILIRUBIN - TOTAL 0.31 mg/dL (0.2-1.3); CALCIUM 7.7 mg/dL (8.5-10.1); CARBON DIOXIDE 18.9 mmol/L (21.0-32.0); CREATININE - SERUM 1.6 mg/dL (0.6-1.3); MAGNESIUM - SERUM 1.5 mg/dL (1.8-2.4); PHOSPHOROUS 3.2 mg/dL (2.5-4.9); POTASSIUM - SERUM 3.8 mmol/L (3.5-5.1); PROTEIN - SERUM 5.4 g/dL (6.4-8.2)
[2020-03-04 06:04] LABS: HEMATOCRIT 33.9 % (42.0-54.0); HEMOGLOBIN 10.8 g/dL (13.5-17.5); MCH 28.3 pg (26.0-34.0); MCHC 31.9 g/dL (31.0-37.0); MEAN PLATELET VOLUME 9.9 fL (7.4-10.4); PLATELET COUNT 362 10x3/uL (130-400); RBC 3.81 10x6/uL (4.20-6.10); RDW 15.9 % (11.5-14.5)
[2020-03-04 06:08] LABS: WBC 13.9 10x3/uL (4.8-10.8)
[2020-03-04 07:59] LABS: EOSINOPHILS 1 % (0-7); LYMPHOCYTES 21 % (15-50); MONOCYTES 6 % (2-11); NEUTROPHILS 71 % (40-80); PLATELET ESTIMATE NORMAL
[2020-03-04 08:11] VITALS: BP 168/80
--- NOTE | 2020-03-04 11:20 | NUR ---
Nutrition Consult: Consult for PEG TF per Dr. Almendarez. Wt: 121.2# (03/03); 116.8# (03/02); 90# (admit) Labs noted: Ca 7.7, Mg 1.5, Alb 1.9 Meds noted: D5W @ 30, Protonix, Carafate, MagOx -Rec start Osmolite 1.5 @ 15 mL/hr and increase by 10 mL/hr to goal rate of 45 mL/hr + H2O flushes 25 mL/hr. -RD following. Thanks for the consult!
--- NOTE | 2020-03-04 11:22 | NUR ---
OT NOTE: PERFORMED GENTLE PROM/STRETCHING TO B LES AND L UE. PT DEMONSTRATED INCREASED AROM IN R UE, BUT VERY WEAK. POSITIONED WITH PILLOWS TO ALL AREAS. PTS HEAD IN FULL EXTENSION AND ATTEMPTED TO PERFORM GENTLE MASSAGE TO ENCOURAGE FLEX. PT ABLE TO MAINTAIN MINIMAL NECK FLEX FOR APPROX 45 SECONDS. PT REQUIRES TOTAL ASSIST WITH ALL ADLS.. PROVIDED MOUTH MOISTURIZER WITH CONSTANT CUES TO SWALLOW.. CLEANED MOUTH AND HANDS. TRAY AT BEDSIDE, HOWEVER, DUE TO PTS NECK IN EXTENSION, DID NOT FEEL SAFE TO FEED THIS AM. DARIAN KATZ,OTR/L [phone]
--- NOTE | 2020-03-04 19:30 | NUR ---
PT IN BED, EYES CLOSED, RESP EVEN AND UNLABORED. NO DISTRESS NOTED. CL IN REACH, SR UP X 2.
[2020-03-04 20:00] VITALS: BP 127/53
[2020-03-05] VITALS: BP 138/78
--- NOTE | 2020-03-05 03:49 | NUR ---
I have reviewed this patient and I concur with the Shift Assessment completed by the Licensed Practical Nurse today this shift.
[2020-03-05 04:00] VITALS: BP 137/80
[2020-03-05 06:34] LABS: BASOPHILS 0.1 % (0-2); EOSINOPHILS 1.5 % (0-7); HEMATOCRIT 33.8 % (42.0-54.0); HEMOGLOBIN 10.8 g/dL (13.5-17.5); IMMATURE GRANULOCYTES 3.2 % (0-5); LYMPHOCYTES 10.6 % (15-50); MCH 28.8 pg (26.0-34.0); MCV 90.1 fL (80.0-100.0); MEAN PLATELET VOLUME 9.8 fL (7.4-10.4); NEUTROPHILS 76.6 % (40-80); PLATELET COUNT 344 10x3/uL (130-400); RBC 3.75 10x6/uL (4.20-6.10); RDW 15.6 % (11.5-14.5); WBC 13.9 10x3/uL (4.8-10.8)
[2020-03-05 06:51] LABS: ALBUMIN 1.7 g/dL (3.4-5.0); ANION GAP 13.9 mmol/L (8-16); BILIRUBIN - TOTAL 0.3 mg/dL (0.2-1.3); CALCIUM 7.7 mg/dL (8.5-10.1); CARBON DIOXIDE 18.7 mmol/L (21.0-32.0); CREATININE - SERUM 1.5 mg/dL (0.6-1.3); MAGNESIUM - SERUM 1.6 mg/dL (1.8-2.4); PHOSPHOROUS 3.1 mg/dL (2.5-4.9); POTASSIUM - SERUM 3.6 mmol/L (3.5-5.1); PROTEIN - SERUM 5.2 g/dL (6.4-8.2); VANCOMYCIN - RANDOM 11.7 ug/mL (10.0-20.0)
--- NOTE | 2020-03-05 07:37 | NUR ---
PATIENT IS RESTING QUIETLY AT THIS TIME. RECIEVED REPORT. FEEDING IS CONTINUING AT 35 FOR NOW BECAUSE DEPUTY SHERIFF [employer] REPORTS THAT THERE WAS RESIDUAL WHEN HE DAVE BACK AND THAT HE WASNT READY TO INCREASE IT TO THE GOAL RATE OF 45 ML/ HOUR. PATIENT HAS CONTRACTURES AND AT THIS TIME HER NECK IS TENSE AND HER RIGHT LEG IS PULLED UP, SHE IS MOVING AND REPOSITIONING IN THE BED.
[2020-03-05 09:08] VITALS: BP 143/77
--- NOTE | 2020-03-05 10:45 | NUR ---
CHECKED RESIDUAL AND THERE IS NO RESIDUAL IN PEG TUBE. INCREASED FEED RATE TO 45ML/HR AND WILL MONITOR CLOSELY. SON CALLED TO CHECK IN ON THE PATIENT. PATIENT WAS TALKATIVE WITH PT, AND SPOKE MORE TO ME DURING MEDICATION ADMINISTATION AFTER PT WAS THERE WITH US. PATIENT IS REPOSITIONED AND APPEARS MORE ALERT.
--- NOTE | 2020-03-05 12:53 | NUR ---
OT NOTE: PERFORMED EXTENSIVE PROM TO B LES.. POSITIONED LES WITH SEVERAL PILLOWS.. AROM TO R UE; EDEMA REMAINS IN L UE AND REPOSITIONED ON PILLOW. PT WITH NECK IN FULL EXTENSION AGAIN.. PERFORMED GENTLE MASSAGE TO STERNOCLEIDOMASTOID MUSCLES, THEN POSITIONED INTO MORE FLEX.. CLEANED FACE AND HANDS WITH WASHCLOTH. DARIAN KATZ,OTR/L [phone]
[2020-03-05 12:57] VITALS: BP 125/59
[2020-03-05 14:22] LABS: BILIRUBIN NEGATIVE (NEGATIVE); GLUCOSE NEGATIVE (NEGATIVE); KETONE NEGATIVE (NEGATIVE); NITRITE NEGATIVE (NEGATIVE); UROBILINOGEN NORMAL (NORMAL)
[2020-03-05 14:25] LABS: BACTERIA MANY /hpf (NEGATIVE); EPITHELIAL CELLS 0-5 /hpf (0-5); RED CELLS - URINE 0-5 /hpf (0-5)
[2020-03-05 14:26] LABS: AMORPHOUS SEDIMENT >1+ /lpf (NONE SEEN); GRANULAR CAST 0-5 /lpf (NONE SEEN); HYALINE CAST 0-5 /lpf (NONE SEEN); YEAST >1+ /hpf (NONE SEEN)
--- NOTE | 2020-03-05 14:35 | NUR ---
OT NOTE: PT COMPLETED POSITIONING TO DECREASE SKIN BREAKDOWN WITH TOTAL A. PT COMPLETED FACE HYGIENE WITH TOTAL A. [phone] THANK YOU,RICHARD PENA
[2020-03-05 20:00] VITALS: BP 146/57
[2020-03-06] VITALS: BP 131/56
--- NOTE | 2020-03-06 03:36 | NUR ---
WENT IN TO TURN PATIENT IV HAS INFILTRATED. NO IV PRESENT AT THIS TIME. PATIENT ON RIGHT SIDE WITH ARM PROPED UP ON PILLOW.
[2020-03-06 04:00] VITALS: BP 159/77
--- NOTE | 2020-03-06 05:34 | NUR ---
I have reviewed this patient and I concur with the Shift Assessment completed by the Licensed Practical Nurse today this shift.
--- NOTE | 2020-03-06 07:51 | NUR ---
ASSESSMENT DONE. DENIES NEEDS
[2020-03-06 10:08] VITALS: BP 145/61
--- NOTE | 2020-03-06 13:22 | NUR ---
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 Wet to dry dressings are being done daily. Left leg has several open areas that are being covered with mepilex foam for protection. Left heel has a deep tissue injury measuring 3cm x 5cm. (heel protectors in place along with floating to prevent pressure). Left lateral foot has a deep tissue injury measuring 3cm x 3cm. (heel protectors along with floating). Left hip / stage 2 pressure injury - (intact blister) - mepilex for protection. Right heel has a deep tissue injury measuring 3cm x 4cm. (heel protectors in use along with floating). Right hip / stage 1 / nonblanchable redness (mepilex covering for protection) Pt is total care/unable to perform or assist with any ADLs. 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 She is on an air overlay mattress. Bony prominences are being protected with mepilex and pillows are between knees. She is being turned/repositioned q 2 hours as she will allow. Movement and even touching causes pt to yell out in pain. Wound care continues to monitor.
--- NOTE | 2020-03-06 13:35 | NUR ---
Nutrition Follow-up: Pt tolerating TF at goal rate. ALL AROUND GEAR MACHINE OPERATOR reports no overt s/s of aspiration with puree solids and honey thick liquids; will likely to continue to require most nutrition via PEG but may have PO for pleasure. Diet: Renal, Puree, Honey Thick Liquids Osmolite 1.5 @ 45 mL/hr + H2O flushes 25 mL/hr No new wt; last wt: 121.2# (03/03) Last BM: 03/06 Labs noted: Glu 138, Ca 7.7, Mg 1.6, Alb 1.7 Meds noted: Protonix, Carafate, MagOx -Continue current TF as tolerated. -Monitor wt; noted daily wts ordered. -RD following.
--- NOTE | 2020-03-06 14:04 | NUR ---
I have reviewed this patient and I concur with the Shift Assessment completed by the Licensed Practical Nurse today this shift.
[2020-03-06 14:08] LABS: OVA + PARASITE EXAM Final report (())
--- NOTE | 2020-03-06 17:25 | NUR ---
WITHOUT CHANGES OR DISTRESS NOTED AT THIS TIME, DENIES NEEDS
--- NOTE | 2020-03-06 17:26 | NUR ---
WITHOUT CHANGES OR DISTRESS NOTED AT THIS TIME.
--- NOTE | 2020-03-06 19:25 | NUR ---
PT LYING IN BED RESTING WITH EYES CLOSED. NO SIGNS OF DISTRESS NOTED. CALL LIGHT WITH IN REACH WILL CONTINUE TO MONITOR.
--- NOTE | 2020-03-06 22:00 | NUR ---
MEDICATION GIVEN. CHECKED FOR RESIDUAL, NO RESIDUAL IN PEG TUBE. PT TOLERATED WELL NO COMPLAINTS AT THIS TIME. CALL LIGHT WITH IN REACH. WILL CONTINUE TO MONITOR.
--- NOTE | 2020-03-07 02:23 | NUR ---
PT RESTING IN BED. EASILY AWAKEN WITH VOICE STIMULATION. PT REPOSITIONED FOR COMFORT. CALL LIGHT WITH IN REACH WILL DO FREQUENT ROUNDING WILL CONTINUE TO MONITOR
--- NOTE | 2020-03-07 05:23 | NUR ---
I have reviewed this patient and I concur with the Shift Assessment completed by the Licensed Practical Nurse today this shift.
--- NOTE | 2020-03-07 06:15 | NUR ---
PT REPOSITIONED FOR COMFORT. CALL LIGHT WITH IN REACH WILL CONTINUE TO MONITOR
[2020-03-07 08:00] VITALS: BP 150/97
--- NOTE | 2020-03-07 09:43 | NUR ---
resting in bed, no distress noted, peg feeding cont, no residual, iv infusing, no reddness at site, refused breakfast, cont to monitor
--- NOTE | 2020-03-07 10:11 | NUR ---
OT NOTE: PERFORMED EXTENSIVE PROM TO ALL EXTREMETIES; MODERATE STRETCHING TO L LE; PT HAD BM.. ROLLED FROM SIDE TO SIDE WITH MAX ASSIST WHILE PERINEAL CARE WAS PERFORMED. PERFORMED RETROGRADE MASSAGE TO L UE TO IMPROVE EDEMA. POSITIONED ALL EXTREMETIES WITH PILLOWS TO ASSIST WITH CONTRACTURES.. A/AROM TO R UE. NECK POSITIONED IN FLEX. DARIAN KATZ,OTR/L [phone]
--- NOTE | 2020-03-07 10:17 | NUR ---
OT NOTE: PT REQUIRED TOTAL A FOR LE AND UE PROM TOLERATED WITHIN AVAILABLE ROM. PT REQUIRED TOTAL A WITH POSITIONING TO DECREASE SKIN BREAKDOWN. PT REQUIRED TOTAL A WITH LB HYGIENE AND BED MOB TASKS. [phone] THANK YOU,RICHARD PENA
[2020-03-07 11:42] VITALS: BP 151/58
--- NOTE | 2020-03-07 13:45 | NUR ---
JADE CHANGED OUT, CHOLO WELL, URINE CLOUDY, INCONT STOOL, CLEANED AND TURNED, CHOLO WELL
--- NOTE | 2020-03-07 15:54 | NUR ---
PT WITH TEMP OF 99.1 AXILLARY, DR PEDROZA AWARE, NEW ORDERS NOTED
--- NOTE | 2020-03-07 18:10 | NUR ---
TEMP 97.8 AXILLARY AFTER TYLENOL, CONT TO MONITOR
--- NOTE | 2020-03-07 19:10 | NUR ---
BEDSIDE REPORT RECEIVED, PT CARE ASSUMED. INTRODUCED SELF AND WROTE NAME ON BOARD. PT LYING IN BED WITH EYES CLOSED, RR EVEN AND NONLABORED, NO S/S OF DISTRESS, AROUSES EASILY TO VOICE, ORIENTED X2, REORIENTED TO TIME AND SITUATION. DENIES ANY NEEDS AT THIS TIME. BED IN LOWEST POSITION, SR X3, CALL LIGHT WITHIN REACH. WILL CONTINUE TO MONITOR.
[2020-03-07 20:00] VITALS: BP 142/64
[2020-03-08] VITALS (8 sets, daily range): BP systolic 129–174; BP diastolic 50–79
[2020-03-08 05:18] LABS: BASOPHILS 0.1 % (0-2); EOSINOPHILS 3.6 % (0-7); HEMATOCRIT 25.7 % (42.0-54.0); HEMOGLOBIN 8.2 g/dL (13.5-17.5); IMMATURE GRANULOCYTES 2.6 % (0-5); LYMPHOCYTES 8.9 % (15-50); MCH 28.2 pg (26.0-34.0); MCHC 31.9 g/dL (31.0-37.0); MCV 88.3 fL (80.0-100.0); MEAN PLATELET VOLUME 9.5 fL (7.4-10.4); MONOCYTES 9.2 % (2-11); NEUTROPHILS 75.6 % (40-80); PLATELET COUNT 383 10x3/uL (130-400); RBC 2.91 10x6/uL (4.20-6.10); RDW 15.2 % (11.5-14.5); WBC 8.9 10x3/uL (4.8-10.8)
[2020-03-08 05:53] LABS: CALCIUM 7.2 mg/dL (8.5-10.1); CREATININE - SERUM 1.2 mg/dL (0.6-1.3); VANCOMYCIN - RANDOM 13.2 ug/mL (10.0-20.0)
--- NOTE | 2020-03-08 07:35 | NUR ---
LAYING SUPINE, EYES CLOSED. RR EVEN AND UNLBAORED. NO DISTRESS NOTED. CALL LIGHT WITHIN REACH. BED IN LOWEST POSITION. WILL CONTINUE TO MONITOR.
--- NOTE | 2020-03-08 11:28 | NUR ---
FEEDING TEMPORARILY DISCONNECTED. 0 RESIDUAL NOTED. 10ML FLUSH. MEDS RECIEVED VIA PEG TUBE. 10 ML FLUSH. BY GRAVITIY. FLUSHING WITH EASE. TEMP CHECKED. 100.3 F. TYLENOL RECIEVED. PT ADJUSTED IN BED TO COMFORT. HOB AT 45 DEGREES. WILL CONTINUE TO MONITOR.
--- NOTE | 2020-03-08 18:07 | NUR ---
I have reviewed this patient and I concur with the Shift Assessment completed by the Licensed Practical Nurse today this shift.
--- NOTE | 2020-03-08 19:05 | NUR ---
REPORT RECEIVED. BEDSIDE SHIFT REPORT COMPLETE. PT IN BED RR EVEN AND UNLABORED. NO S/SX OF DISTRESS OBSERVED AT THIS TIME. TUBE FEEDINGS CONTINUE ORDERED. NO RESIDUAL NOTED. REPOSITIONED FOR COMFORT. CALL LIGHT IN REACH. WILL CPOC.
[2020-03-09] VITALS: BP 123/54
[2020-03-09 04:00] VITALS: BP 131/62
[2020-03-09 06:20] LABS: BASOPHILS 0.1 % (0-2); EOSINOPHILS 3.1 % (0-7); HEMATOCRIT 24.2 % (42.0-54.0); HEMOGLOBIN 7.6 g/dL (13.5-17.5); IMMATURE GRANULOCYTES 1.5 % (0-5); LYMPHOCYTES 7.9 % (15-50); MCH 27.6 pg (26.0-34.0); MCHC 31.4 g/dL (31.0-37.0); MEAN PLATELET VOLUME 9.2 fL (7.4-10.4); MONOCYTES 10.2 % (2-11); NEUTROPHILS 77.2 % (40-80); PLATELET COUNT 411 10x3/uL (130-400); RBC 2.75 10x6/uL (4.20-6.10); RDW 15.1 % (11.5-14.5); WBC 8.9 10x3/uL (4.8-10.8)
[2020-03-09 06:55] LABS: CALC OSMOLALITY 268 mosm/kg (275-300); CALCIUM 7.1 mg/dL (8.5-10.1); CARBON DIOXIDE 23.2 mmol/L (21.0-32.0); CHLORIDE - SERUM 102 mmol/L (98-107); GLUCOSE 123 mg/dL (74-106); POTASSIUM - SERUM 4.2 mmol/L (3.5-5.1); SODIUM 132 mmol/L (136-145); UREA NITROGEN 21 mg/dL (7-18); eGFR NON AFRICAN AMERICAN 76 mL/min (90-120)
[2020-03-09 09:35] VITALS: BP 120/73
--- NOTE | 2020-03-09 12:29 | NUR ---
PT IN 09/05 PAIN IN LEG. CHANDRIKA UNGER NEW ORDER FOR PAIN MEDICATION ESTABLISHED. DRESSING CHANGED ON LEFT LEG. LOTS OF PURULENT YELLOW DRAINAGE. BED LOW CALL LIGHT WITHIN REACH. WILL CONTINUE TO MONITOR.
--- NOTE | 2020-03-09 13:10 | NUR ---
OT NOTE: PT WITH INCREASED KNEE/HIP FLEX IN L LE. HEEL TO BUTTOCKS WITH C/O PAIN TO L LEG. ATTEMPTED TO STRETCH L LE, HOWEVER, INCREASED TIGHTNESS NOTED TODAY. ATTEMPTED MYOFACIAL RELEASE TO ADDUCTOR MUSCLES ALONG WITH MODERATE STRETCHING.. ABLE TO GET HIP INTO APPROX 90 DEGREES EXT AND KNEE INTO APPROX 120 DEGREES... PROVIDED SEVERAL PILLOWS AND TOWELS TO MAINTAIN POSITION. L UE IS MUCH IMPROVED. LESS EDEMA AND INCREASED MOVEMENT NOTED. DARIAN KATZ, OTR/L [phone]
--- NOTE | 2020-03-09 13:32 | NUR ---
Nutrition follow-up: Diet: Renal puree; po intake poor PEG tube placed and Osmolite 1.5 shawnee infusing @ 45 ml/hr goal Pt tolerating at this time Labs reviewed Wt: 121# RDN following.
[2020-03-09 14:23] VITALS: BP 138/51
--- NOTE | 2020-03-09 14:45 | NUR ---
PT FIRST UNIT OF BLOOD STARTED. VSS. NO S/S OF DISTRESS AT THIODS TIME. BED LOW CALL LIGHT WITHIN REACH. WILL CONTINUE TO MONITOR.
--- NOTE | 2020-03-09 17:56 | NUR ---
STARTED PT 2ND UNIT OF BLOOD. VSS. NO S/S OF DISTRESS. BED LOW CALL LIGHT WITHIN REACH.
[2020-03-09 18:45] VITALS: BP 130/53
[2020-03-09 20:00] VITALS: BP 123/57
[2020-03-10] VITALS: BP 130/60
--- NOTE | 2020-03-10 03:46 | NUR ---
I have reviewed this patient and I concur with the Shift Assessment completed by the Licensed Practical Nurse today this shift.
[2020-03-10 04:00] VITALS: BP 126/62
--- NOTE | 2020-03-10 04:40 | NUR ---
BATH AND LINEN CHANGE COMPLETE. TUBING TO PEG CHANGED. REPOSITIONED IN BED FOR COMFORT. BED LOW, CL IN REACH.
[2020-03-10 05:10] LABS: BASOPHILS 0.3 % (0-2); EOSINOPHILS 4.2 % (0-7); IMMATURE GRANULOCYTES 1.4 % (0-5); LYMPHOCYTES 12.3 % (15-50); MCH 28.4 pg (26.0-34.0); MCHC 32.3 g/dL (31.0-37.0); MCV 87.8 fL (80.0-100.0); MEAN PLATELET VOLUME 9.1 fL (7.4-10.4); MONOCYTES 12.1 % (2-11); NEUTROPHILS 69.7 % (40-80); PLATELET COUNT 407 10x3/uL (130-400); RDW 14.4 % (11.5-14.5); WBC 7.3 10x3/uL (4.8-10.8)
[2020-03-10 05:17] LABS: HEMATOCRIT 35.3 % (42.0-54.0); HEMOGLOBIN 11.4 g/dL (13.5-17.5); RBC 4.02 10x6/uL (4.20-6.10)
[2020-03-10 05:21] LABS: ANION GAP 11.4 mmol/L (8-16); CALCIUM 7.2 mg/dL (8.5-10.1); CARBON DIOXIDE 23.4 mmol/L (21.0-32.0); CREATININE - SERUM 1.2 mg/dL (0.6-1.3); MAGNESIUM - SERUM 1.5 mg/dL (1.8-2.4); POTASSIUM - SERUM 4.8 mmol/L (3.5-5.1)
--- NOTE | 2020-03-10 07:25 | NUR ---
ASSESSMENT DONE. DENIES NEEDS
[2020-03-10 08:00] VITALS: BP 148/70
--- NOTE | 2020-03-10 10:27 | NUR ---
I have reviewed this patient and I concur with the Shift Assessment completed by the Licensed Practical Nurse today this shift.
[2020-03-10 13:25] VITALS: BP 157/74
--- NOTE | 2020-03-10 14:12 | NUR ---
OT NOTE: EXTENSIVE PROM TO B LES AND L UE; AROM EXS FOR R UE.. WITH ASSISTANCE OF RAMOS, WE WERE ABLE TO PASSIVELY RANGE L LE TO APPROX -70 EXT AND -65 DEGREES KNEE EXT. POSSITIONED WITH PILLOWS AND TOWELS. ROLLING SIDE TO SIDE WITH MAX ASSIST. GENTLE STRETCHING INTO CERVICAL FLEX. DARIAN KATZ, OTR/L [phone]
--- NOTE | 2020-03-10 14:17 | MORECARE ---
CASE MANAGEMENT DISCHARGE SUMMARY PATIENT: LUIS CASTELLANOS UNIT: [id number] ADM DATE: 02/28/20 AGE: 84 : 35 SEX: M ROOM/BED: D.2106 AUTHOR: ELIER,DOC PHYSICIAN: REFERRING PHYSICIAN: KEYONA RAMOS MD DATE OF SERVICE: 03/10/20 Discharge Plan Patient Name: LUIS CASTELLANOS Facility: [facility]:[place] : 1935 Planned Disposition: Home with Home Health Anticipated Discharge Date: Discharge Date: Expected LOS: Initial Reviewer: [email or web address] Initial Review Date: 02/28/2020 Generated: 03/10/20 3:16 pm Comments DCP- Discharge Planning Updated by [id number]: Mary Ann Martínez on 03/10/20 1:[address] Need: HHS, Soct Lift, TF's. CM contacted patient's son, Keon #[phone], who is patient's primary caregiver regarding DC plans. Son states that the patient has HHS with [facility] of [place], and will need a Scot Lift, from [facility] and he has no preference for Enteral feeding. Son has private hire POWDER CUTTING OPERATOR in the home. DME at home: Hospital bed, Nebulizer, nebulizer meds, Home O2. PCP: Feng Francis. Pharmacy: [facility] [address]. CM will contact [facility] for resumption of services. DCP- Discharge Planning Updated by [email or web address]: Elli Dorantes on 03/03/20 7:[address] Patient Name: LUIS CASTELLANOS Admission Status: ER Accout number: [id number] Admission Date: 02-28-2020 : 1935 Admission Diagnosis:SEPSIS, UNSPECIFIED ORGANISM Attending: ALTON Current LOS: 4 Anticipated DC Date: Planned Disposition: Home with Home Health Primary Insurance: MEDICARE A & B Discharge Planning Comments: CM called and spoke with patient's son Keon to complete initial dc planning assessment. CM educated patient on the CM role and verbal consent given by patient to complete assessment. Patient lives at home with her son where she is mostly total care in the last few months. At discharge plans to return home with home health ([place]) DINA completed and feels this is a safe discharge. CM discussed availability of home health, rehab services, and medical equipment. Patient has a nebulizer, home 02, hospital bed, walker, and w/c. Keon denied known discharge needs at this time. CM will continue to follow and will assist as needed with dc plans/needs. Punch Hand: Elli Dorantes Appended by Elli Dorantes on 03/03/2020 20:35 CDT: Patient will need DINA completed for infusion company for tube feeding DCP- Discharge Planning Updated by [id number]: Elli Dorantes on 03/02/20 7:[address] PATIENT IS UNABLE TO COMPLETE DISCHARGE PLANNING ASSESSMENT. PATIENT WAS IN A SKILLED FACILITY ? [place] ? CM TRIED TO CONTACT BOTH SONS LISTED CONTACTS AND DID NOT GET AND ANSWER. CM WILL CONTINUE TO FOLLOW AND ASSIST NEEDED WITH DISCHARGE PLANNING / NEEDS. DCPIA - Discharge Planning Initial Assessment Updated by [email or web address]: Elli Dorantes on 03/03/20 8:26 pm * Is the patient Alert and Oriented? No * How many steps to enter\exit or inside your home? * PCP DALTON DRAKE * Pharmacy [facility] * Preadmission Environment Home with Family * ADLs Partial Dependent * Partial ADLs (Assistance needed) Ambulation Bathing Dressing Eating Medication Management Toileting Transfers * Other Equipment HOME/PORTABLE 02, NEBULZER, HOSPITAL BED, W/C, WALKER * List name and contact numbers for known caregivers / representatives who currently or will assist patient after discharge: MARIA ISABEL CASTELLANOS - [facility] - [phone] KEON CASTELLANOS - [facility] -[phone] * Verbal permission to speak to the caregivers and representatives has been obtained from the patient. N/A * Community resources currently utilized Home Health * Please name any agencies selected above. [facility] [phone] * Additional services required to return to the preadmission environment? No * Can the patient safely return to the preadmission environment? Yes * Has this patient been hospitalized within the prior 30 days at any hospital? No Last DP export: 03/03/20 7:48 pm Patient Name: LUIS CASTELLANOS Page [phone] at 1417 All edits/amendments must be made on the electronic document DICTATION DATE: 03/10/201415 GUARDIAN AD LITEM: EFDE 03/10/201415 RPT#: [id number] DC DATE: STATUS: ADM IN [facility] [address] [place] [address] END OF REPORT
--- NOTE | 2020-03-10 14:43 | NUR ---
OT NOTE: PT REQUIRED TOTAL A WITH BED MOB TASKS. RAMOS/OTR COMPLETED CONTRACTURE MANAGEMENT WITH GENTLE PROM TO UE/LE TOLERATED BY PT. RAMOS/OTR POSITIONED PATIENT TO REDUCE SKIN BREAKDOWN AND RELIEVE PRESSURE POINTS. [phone] THANK YOU,RICHARD PENA
--- NOTE | 2020-03-10 19:30 | NUR ---
PT IN BED, EYES CLOSED, RESP EVEN AND UNLABORED, NO DISTRESS NOTED, CL IN REACH, SR UP X 2.
[2020-03-10 21:12] VITALS: BP 162/73
[2020-03-11] VITALS: BP 127/66
[2020-03-11 05:17] VITALS: BP 154/72
[2020-03-11 06:02] LABS: BASOPHILS 0.5 % (0-2); EOSINOPHILS 3.3 % (0-7); HEMATOCRIT 34.1 % (42.0-54.0); HEMOGLOBIN 10.8 g/dL (13.5-17.5); IMMATURE GRANULOCYTES 1.2 % (0-5); LYMPHOCYTES 10.4 % (15-50); MCH 27.9 pg (26.0-34.0); MCHC 31.7 g/dL (31.0-37.0); MCV 88.1 fL (80.0-100.0); MEAN PLATELET VOLUME 9.1 fL (7.4-10.4); MONOCYTES 10.4 % (2-11); NEUTROPHILS 74.2 % (40-80); PLATELET COUNT 444 10x3/uL (130-400); RBC 3.87 10x6/uL (4.20-6.10); RDW 14.5 % (11.5-14.5); WBC 8.7 10x3/uL (4.8-10.8)
[2020-03-11 06:40] LABS: ANION GAP 11.2 mmol/L (8-16); CALCIUM 7.6 mg/dL (8.5-10.1); CARBON DIOXIDE 24.7 mmol/L (21.0-32.0); CREATININE - SERUM 1.1 mg/dL (0.6-1.3); MAGNESIUM - SERUM 1.6 mg/dL (1.8-2.4); POTASSIUM - SERUM 4.9 mmol/L (3.5-5.1)
[2020-03-11 08:03] VITALS: BP 162/59
--- NOTE | 2020-03-11 08:38 | MORECARE ---
CASE MANAGEMENT DISCHARGE SUMMARY PATIENT: LUIS CASTELLANOS UNIT: [id number] ADM DATE: 02/28/20 AGE: 84 : 35 SEX: M ROOM/BED: D.2106 AUTHOR: ELIER,DOC PHYSICIAN: REFERRING PHYSICIAN: KEYONA RAMOS MD DATE OF SERVICE: 03/11/20 Discharge Plan Patient Name: LUIS CASTELLANOS Facility: [facility]:[place] : 1935 Planned Disposition: Home with Home Health Anticipated Discharge Date: Discharge Date: Expected LOS: Initial Reviewer: [email or web address] Initial Review Date: 02/28/2020 Generated: 03/11/20 9:37 am Comments DCP- Discharge Planning Updated by [email or web address]: Mary Ann Martínez on 03/10/20 1:[address] Need: HHS, Scot Lift, TF's. CM contacted patient's son, Keon #[phone], who is patient's primary caregiver regarding DC plans. Son states that the patient has HHS with [facility] [place], and will need a [facility] Lift, from [facility] and he has no preference for Enteral feeding. Son has private hire WEBSPHERE MESSAGE BROKER DEVELOPER in the home. DME at home: Hospital bed, Nebulizer, nebulizer meds, Home O2. PCP: Feng Francis. Pharmacy: [facility] [address]. CM will contact [facility] for resumption of services. DCP- Discharge Planning Updated by [email or web address]: Elli Dorantes on 03/03/20 7:[address] Patient Name: LUIS CASTELLANOS Admission Status: ER Accout number: [id number] Admission Date: 02-28-2020 : 1935 Admission Diagnosis:SEPSIS, UNSPECIFIED ORGANISM Attending: ALTON Current LOS: 4 Anticipated DC Date: Planned Disposition: Home with Home Health Primary Insurance: MEDICARE A & B Discharge Planning Comments: CM called and spoke with patient's son Keon to complete initial dc planning assessment. CM educated patient on the CM role and verbal consent given by patient to complete assessment. Patient lives at home with her son where she is mostly total care in the last few months. At discharge plans to return home with home health ([place]) DINA completed and feels this is a safe discharge. CM discussed availability of home health, rehab services, and medical equipment. Patient has a nebulizer, home 02, hospital bed, walker, and w/c. Keon denied known discharge needs at this time. CM will continue to follow and will assist as needed with dc plans/needs. Olive Grader: Elli Dorantes Appended by Elli Dorantes on 03/03/2020 20:35 CDT: Patient will need DINA completed for infusion company for tube feeding DCP- Discharge Planning Updated by [email or web address]: Elli Dorantes on 03/02/20 7:[address] PATIENT IS UNABLE TO COMPLETE DISCHARGE PLANNING ASSESSMENT. PATIENT WAS IN A SKILLED FACILITY ? [place] ? CM TRIED TO CONTACT BOTH SONS LISTED CONTACTS AND DID NOT GET AND ANSWER. CM WILL CONTINUE TO FOLLOW AND ASSIST NEEDED WITH DISCHARGE PLANNING / NEEDS. DCPIA - Discharge Planning Initial Assessment Updated by [email or web address]: Elli Dorantes on 03/03/20 8:26 pm * Is the patient Alert and Oriented? No * How many steps to enter\exit or inside your home? * PCP DALTON DRAKE * Pharmacy [facility] * Preadmission Environment Home with Family * ADLs Partial Dependent * Partial ADLs (Assistance needed) Ambulation Bathing Dressing Eating Medication Management Toileting Transfers * Other Equipment HOME/PORTABLE 02, NEBULZER, HOSPITAL BED, W/C, WALKER * List name and contact numbers for known caregivers / representatives who currently or will assist patient after discharge: MARIA ISABEL CASTELLANOS [facility] [phone] KEON CASTELLANOS [facility] -[phone] * Verbal permission to speak to the caregivers and representatives has been obtained from the patient. N/A * Community resources currently utilized Home Health * Please name any agencies selected above. [facility] [phone] * Additional services required to return to the preadmission environment? No * Can the patient safely return to the preadmission environment? Yes * Has this patient been hospitalized within the prior 30 days at any hospital? No External Providers External Provider: [employer] Next Contact Date: Service Request Date: Service Type: Resolution: Reviewer: Comments: Last DP export: 03/10/20 1:17 p Patient Name: LUIS CASTELLANOS Page [phone] at 0838 All edits/amendments must be made on the electronic document DICTATION DATE: 03/11/20836 COIL MACHINE SUPERVISOR: FEDE 03/11/20836 RPT#: [id number] DC DATE: STATUS: ADM IN [facility] [address] [place] [address] END OF REPORT
--- NOTE | 2020-03-11 08:45 | MORECARE ---
CASE MANAGEMENT DISCHARGE SUMMARY PATIENT: LUIS CASTELLANOS UNIT: [id number] ADM DATE: 02/28/20 AGE: 84 : 35 SEX: M ROOM/BED: D.2106 AUTHOR: ELIER,DOC PHYSICIAN: REFERRING PHYSICIAN: KEYONA RAMOS MD DATE OF SERVICE: 03/11/20 Discharge Plan Patient Name: LUIS CASTELLANOS Facility: [facility]:[place] : 1935 Planned Disposition: Home with Home Health Anticipated Discharge Date: Discharge Date: Expected LOS: Initial Reviewer: [email or web address] Initial Review Date: 02/28/2020 Generated: 03/11/20 9:45 am Comments DCP- Discharge Planning Updated by [id number]: Mary Ann Martínez on 03/10/20 1:[address] Need: HHS, Csot Lift, TF's. CM contacted patient's son, Keon #[phone], who is patient's primary caregiver regarding DC plans. Son states that the patient has HHS with [facility] [place], and will need a Scot Lift, from [facility] and he has no preference for Enteral feeding. Son has private hire CORK MOLDER in the home. DME at home: Hospital bed, Nebulizer, nebulizer meds, Home O2. PCP: Feng Francis. Pharmacy: [facility] [address]. CM will contact [facility] for resumption of services. DCP- Discharge Planning Updated by [id number]: Elli Dorantes on 03/03/20 7:[address] Patient Name: LUIS CASTELLANOS Admission Status: ER Accout number: [id number] Admission Date: 02-28-2020 : 1935 Admission Diagnosis:SEPSIS, UNSPECIFIED ORGANISM Attending: ALTON Current LOS: 4 Anticipated DC Date: Planned Disposition: Home with Home Health Primary Insurance: MEDICARE A & B Discharge Planning Comments: CM called and spoke with patient's son Keno to complete initial dc planning assessment. CM educated patient on the CM role and verbal consent given by patient to complete assessment. Patient lives at home with her son where she is mostly total care in the last few months. At discharge plans to return home with home health ([place]) DINA completed and feels this is a safe discharge. CM discussed availability of home health, rehab services, and medical equipment. Patient has a nebulizer, home 02, hospital bed, walker, and w/c. Keon denied known discharge needs at this time. CM will continue to follow and will assist as needed with dc plans/needs. Spa Associate: Elli Dorantes Appended by Elli Dorantes on 03/03/2020 20:35 CDT: Patient will need DINA completed for infusion company for tube feeding DCP- Discharge Planning Updated by [email or web address]: Elli Dorantes on 03/02/20 7:[address] PATIENT IS UNABLE TO COMPLETE DISCHARGE PLANNING ASSESSMENT. PATIENT WAS IN A SKILLED FACILITY ? [place] ? CM TRIED TO CONTACT BOTH SONS LISTED CONTACTS AND DID NOT GET AND ANSWER. CM WILL CONTINUE TO FOLLOW AND ASSIST NEEDED WITH DISCHARGE PLANNING / NEEDS. DCPIA - Discharge Planning Initial Assessment Updated by [id number]: Elli Dorantes on 03/03/20 8:26 pm * Is the patient Alert and Oriented? No * How many steps to enter\exit or inside your home? * PCP DALTON DRAKE * Pharmacy [facility] * Preadmission Environment Home with Family * ADLs Partial Dependent * Partial ADLs (Assistance needed) Ambulation Bathing Dressing Eating Medication Management Toileting Transfers * Other Equipment HOME/PORTABLE 02, NEBULZER, HOSPITAL BED, W/C, WALKER * List name and contact numbers for known caregivers / representatives who currently or will assist patient after discharge: MARIA ISABEL CASTELLANOS [facility] - [phone] KEYONAZACH CASTELLANOS [facility] -[phone] * Verbal permission to speak to the caregivers and representatives has been obtained from the patient. N/A * Community resources currently utilized Home Health * Please name any agencies selected above. [facility] [phone] * Additional services required to return to the preadmission environment? No * Can the patient safely return to the preadmission environment? Yes * Has this patient been hospitalized within the prior 30 days at any hospital? No External Providers External Provider: [facility] Contact Date: Service Request Date: Service Type: Resolution: Reviewer: Comments: Last DP export: 03/11/20 7:38 a Patient Name: LUIS CASTELLANOS Page [phone] at 0845 All edits/amendments must be made on the electronic document DICTATION DATE: 03/11/20844 HOME ENERGY CONSULTANT: FEDE 03/11/20844 RPT#: [id number] DC DATE: STATUS: ADM IN [facility] [address] [place] [address] END OF REPORT
--- NOTE | 2020-03-11 08:52 | MORECARE ---
CASE MANAGEMENT DISCHARGE SUMMARY PATIENT: LUIS CASTELLANOS UNIT: [id number] ADM DATE: 02/28/20 AGE: 84 : 35 SEX: M ROOM/BED: D.2106 AUTHOR: ELIER,DOC PHYSICIAN: REFERRING PHYSICIAN: KEYONA RAMOS MD DATE OF SERVICE: 03/11/20 Discharge Plan Patient Name: LUIS CASTELLANOS Facility: [facility]:[place] : 1935 Planned Disposition: Home with Home Health Anticipated Discharge Date: Discharge Date: Expected LOS: Initial Reviewer: [email or web address] Initial Review Date: 02/28/2020 Generated: 03/11/20 9:51 am Comments DCP- Discharge Planning Updated by [email or web address]: Mary Ann Martínez on 03/10/20 1:[address] Need: HHS, Scot Lift, TF's. CM contacted patient's son, Keon #[phone], who is patient's primary caregiver regarding DC plans. Son states that the patient has HHS with [facility] [place], and will need a Scot Lift, from [facility] and he has no preference for Enteral feeding. Son has private hire PROCESS PLANNER in the home. DME at home: Hospital bed, Nebulizer, nebulizer meds, Home O2. PCP: Feng Francis. Pharmacy: [facility] on [facility]. CM will contact [facility] for resumption of services. DCP- Discharge Planning Updated by [id number]: Elli Dorantes on 03/03/20 7:[address] Patient Name: LUIS CASTELLANOS Admission Status: ER Accout number: [id number] Admission Date: 02-28-2020 : 1935 Admission Diagnosis:SEPSIS, UNSPECIFIED ORGANISM Attending: ALTON Current LOS: 4 Anticipated DC Date: Planned Disposition: Home with Home Health Primary Insurance: MEDICARE A & B Discharge Planning Comments: CM called and spoke with patient's son Keon to complete initial dc planning assessment. CM educated patient on the CM role and verbal consent given by patient to complete assessment. Patient lives at home with her son where she is mostly total care in the last few months. At discharge plans to return home with home health ([employer]) DNIA completed and feels this is a safe discharge. CM discussed availability of home health, rehab services, and medical equipment. Patient has a nebulizer, home 02, hospital bed, walker, and w/c. Keon denied known discharge needs at this time. CM will continue to follow and will assist as needed with dc plans/needs. Travel Registered Nurse Oncology: Elli Dorantes Appended by Elli Dorantes on 03/03/2020 20:35 CDT: Patient will need DINA completed for infusion company for tube feeding DCP- Discharge Planning Updated by [email or web address]: Elli Dorantes on 03/02/20 7:[address] PATIENT IS UNABLE TO COMPLETE DISCHARGE PLANNING ASSESSMENT. PATIENT WAS IN A SKILLED FACILITY ? [place] ? CM TRIED TO CONTACT BOTH SONS LISTED CONTACTS AND DID NOT GET AND ANSWER. CM WILL CONTINUE TO FOLLOW AND ASSIST NEEDED WITH DISCHARGE PLANNING / NEEDS. DCPIA - Discharge Planning Initial Assessment Updated by [email or web address]: Elli Dorantes on 03/03/20 8:26 pm * Is the patient Alert and Oriented? No * How many steps to enter\exit or inside your home? * PCP DALTON DRAKE * Pharmacy [facility] * Preadmission Environment Home with Family * ADLs Partial Dependent * Partial ADLs (Assistance needed) Ambulation Bathing Dressing Eating Medication Management Toileting Transfers * Other Equipment HOME/PORTABLE 02, NEBULZER, HOSPITAL BED, W/C, WALKER * List name and contact numbers for known caregivers / representatives who currently or will assist patient after discharge: MARIA ISABEL CASTELLANOS [facility] - [phone] KEYONAZACH CASTELLANOS [facility] -[phone] * Verbal permission to speak to the caregivers and representatives has been obtained from the patient. N/A * Community resources currently utilized Home Health * Please name any agencies selected above. [facility] [phone] * Additional services required to return to the preadmission environment? No * Can the patient safely return to the preadmission environment? Yes * Has this patient been hospitalized within the prior 30 days at any hospital? No External Providers External Provider: [facility] Contact Date: Service Request Date: Service Type: Resolution: Reviewer: Comments: Last DP export: 03/11/20 7:45 a Patient Name: LUIS CASTELLANOS Page [phone] at 0852 All edits/amendments must be made on the electronic document DICTATION DATE: 03/11/20850 MAINTENANCE DEPARTMENT TECHNICIAN: FEDE 03/11/20850 RPT#: [id number] DC DATE: STATUS: ADM IN [facility] [address] [place] [address] END OF REPORT
--- NOTE | 2020-03-11 09:12 | MORECARE ---
CASE MANAGEMENT DISCHARGE SUMMARY PATIENT: LUIS CASTELLANOS UNIT: [id number] ADM DATE: 02/28/20 AGE: 84 : 35 SEX: M ROOM/BED: D.2106 AUTHOR: ELIER,DOC PHYSICIAN: REFERRING PHYSICIAN: KEYONA RAMOS MD DATE OF SERVICE: 03/11/20 Discharge Plan Patient Name: LUIS CASTELLANOS Facility: [facility]:[place] : 1935 Planned Disposition: Home with Home Health Anticipated Discharge Date: Discharge Date: Expected LOS: Initial Reviewer: [email or web address] Initial Review Date: 02/28/2020 Generated: 03/11/20 10:11 am Comments DCP- Discharge Planning Updated by [email or web address]: Mary Ann Martínez on 03/10/20 1:[address] Need: HHS, Scot Lift, TF's. CM contacted patient's son, Keon #[phone], who is patient's primary caregiver regarding DC plans. Son states that the patient has HHS with [facility] [place], and will need a [facility] Lift, from [facility] and he has no preference for Enteral feeding. Son has private hire MANUAL LATHE OPERATOR in the home. DME at home: Hospital bed, Nebulizer, nebulizer meds, Home O2. PCP: Feng Francis. Pharmacy: [facility] on [address]. CM will contact [facility] for resumption of services. DCP- Discharge Planning Updated by [email or web address]: Elli Dorantes on 03/03/20 7:[address] Patient Name: LUIS CASTELLANOS Admission Status: ER Accout number: [id number] Admission Date: 02-28-2020 : 1935 Admission Diagnosis:SEPSIS, UNSPECIFIED ORGANISM Attending: ALTON Current LOS: 4 Anticipated DC Date: Planned Disposition: Home with Home Health Primary Insurance: MEDICARE A & B Discharge Planning Comments: CM called and spoke with patient's son Keon to complete initial dc planning assessment. CM educated patient on the CM role and verbal consent given by patient to complete assessment. Patient lives at home with her son where she is mostly total care in the last few months. At discharge plans to return home with home health ([place]) DINA completed and feels this is a safe discharge. CM discussed availability of home health, rehab services, and medical equipment. Patient has a nebulizer, home 02, hospital bed, walker, and w/c. Keon denied known discharge needs at this time. CM will continue to follow and will assist as needed with dc plans/needs. [employer] Exchange Wireless Manager: Elli Dorantes Appended by Elli Dorantes on 03/03/2020 20:35 CDT: Patient will need DINA completed for infusion company for tube feeding DCP- Discharge Planning Updated by [email or web address]: Elli Dorantes on 03/02/20 7:[address] PATIENT IS UNABLE TO COMPLETE DISCHARGE PLANNING ASSESSMENT. PATIENT WAS IN A SKILLED FACILITY ? [place] ? CM TRIED TO CONTACT BOTH SONS LISTED CONTACTS AND DID NOT GET AND ANSWER. CM WILL CONTINUE TO FOLLOW AND ASSIST NEEDED WITH DISCHARGE PLANNING / NEEDS. DCPIA - Discharge Planning Initial Assessment Updated by [email or web address]: Elli Dorantes on 03/03/20 8:26 pm * Is the patient Alert and Oriented? No * How many steps to enter\exit or inside your home? * PCP DALTON DRAKE * Pharmacy [facility] * Preadmission Environment Home with Family * ADLs Partial Dependent * Partial ADLs (Assistance needed) Ambulation Bathing Dressing Eating Medication Management Toileting Transfers * Other Equipment HOME/PORTABLE 02, NEBULZER, HOSPITAL BED, W/C, WALKER * List name and contact numbers for known caregivers / representatives who currently or will assist patient after discharge: MARIA ISABEL CASTELLANOS [facility] [phone] KEON CASTELLANOS [facility] -[phone] * Verbal permission to speak to the caregivers and representatives has been obtained from the patient. N/A * Community resources currently utilized Home Health * Please name any agencies selected above. [facility] [phone] * Additional services required to return to the preadmission environment? No * Can the patient safely return to the preadmission environment? Yes * Has this patient been hospitalized within the prior 30 days at any hospital? No External Providers External Provider: [facility] Next Contact Date: Service Request Date: Service Type: Resolution: Reviewer: Comments: Last DP export: 03/11/20 7:52 a Patient Name: LUIS CASTELLANOS Page [phone] at 0912 All edits/amendments must be made on the electronic document DICTATION DATE: 03/11/20910 EXHIBITION CARVER: FEDE 03/11/20910 RPT#: [id number] DC DATE: STATUS: ADM IN [facility] [address] [place] [address] END OF REPORT
[2020-03-11] MEDS ORDERED: CARDIZEM30 MG PT (11:06)
[2020-03-11] MEDS ORDERED: MACRODANTIN50 MG PO (11:09)
[2020-03-11 11:35] VITALS: BP 131/56
--- NOTE | 2020-03-11 13:51 | NUR ---
OT NOTE: PT REQUIRED TOTAL A WITH BED MOB TASKS FOR POSITIONING TASKS TO DECREASE PRESSURE SPOTS WITH ASSIST OF OTR. RAMOS/OTR COMPLETED PROM TO UE/LE TOLERATED BY PT. RAMOS/OTR COMPLETED EXTENSIVE POSITIONING TO DECREASE FURTHER SKIN BREAKDOWN. [phone] THANK YOU,RICHARD PENA
--- NOTE | 2020-03-11 13:55 | NUR ---
OT NOTE: UPON RETURN TO ROOM, PT WITH R KNEE AND HIP IN FULL FLEX.. L HAND VERY EDEMATOUS. REQUIRES ASSIST X 2 TO GET PT INTO IMPROVED POSITIONING DUE TO HIGH TONE AND SEVERITY OF CONTRACTURES. MYOFACIAL RELEASE TO HIP ADDUCTORS AND GENTLE, SUSTAINED STRETCH FOR KNEE EXT. GENTLE RETROGRADE MASSAGE TO L HAND/FINGERS AND THEN ELEVATED ON SEVERAL PILLOWS. REQUIRES 2 PERSON ASSIST FOR POSITIONING TO MAINTAIN FOLLOWING EXTENSIVE PROM. DARIAN KATZ, OTR/L [phone]
--- NOTE | 2020-03-11 14:48 | MORECARE ---
CASE MANAGEMENT DISCHARGE SUMMARY PATIENT: LUIS CASTELLANOS UNIT: [id number] ADM DATE: 02/28/20 AGE: 84 : 35 SEX: M ROOM/BED: D.2106 AUTHOR: ELIER,DOC PHYSICIAN: REFERRING PHYSICIAN: KEYONA RAMOS MD DATE OF SERVICE: 03/11/20 Discharge Plan Patient Name: LUIS CASTELLANOS Facility: [facility]:[place] : 1935 Planned Disposition: Home with Home Health Anticipated Discharge Date: Discharge Date: Expected LOS: Initial Reviewer: [email or web address] Initial Review Date: 02/28/2020 Generated: 03/11/20 3:48 pm Comments DCP- Discharge Planning Updated by [email or web address]: Mary Ann Martínez on 03/11/20 1:[address] CM had set up tube feedings with [facility], , spoke with Kayla, faxed required information and provided son Nathaniel 's. Contacted [facility], spoke with , faxed required information. Tre Herbert called back and states he does not think he can provide all the care the patient needs. He has questions for Dr. Nash. Hospice order obtained, spoke with Nathaniel again and his choice is [facility] and he knows a nurse that works there. ANAYELI contacted Mahi with [facility] for referral. Provided required information to Irene. Mahi will CB once financials checked. Await CB. Faxed information to Krystal @[phone]. DCP- Discharge Planning Updated by [email or web address]: Mary Ann Martínez on 03/10/20 1:[address] Need: HHS, Scot Lift, TF's. CM contacted patient's son, Nathaniel #[phone], who is patient's primary caregiver regarding DC plans. Son states that the patient has HHS with [facility] [place], and will need a Scot Lift, from [facility] and he has no preference for Enteral feeding. Son has private hire HAND TUBE BENDER in the home. DME at home: Hospital bed, Nebulizer, nebulizer meds, Home O2. PCP: Feng Francis. Pharmacy: [facility] on [address] [facility]. CM will contact [facility] for resumption of services. DCP- Discharge Planning Updated by [email or web address]: Elli Dorantes on 03/03/20 7:[address] Patient Name: LUIS CASTELLANOS Admission Status: ER Accout number: [id number] Admission Date: 02-28-2020 : 1935 Admission Diagnosis:SEPSIS, UNSPECIFIED ORGANISM Attending: ALTON Current LOS: 4 Anticipated DC Date: Planned Disposition: Home with Home Health Primary Insurance: MEDICARE A & B Discharge Planning Comments: CM called and spoke with patient's son Nathaniel to complete initial dc planning assessment. CM educated patient on the CM role and verbal consent given by patient to complete assessment. Patient lives at home with her son where she is mostly total care in the last few months. At discharge plans to return home with home health ([place]) DINA completed and feels this is a safe discharge. CM discussed availability of home health, rehab services, and medical equipment. Patient has a nebulizer, home 02, hospital bed, walker, and w/c. Nathaniel denied known discharge needs at this time. CM will continue to follow and will assist as needed with dc plans/needs. Legal Administrative Assistant: Elli Dorantes Appended by Elli Dorantes on 03/03/2020 20:35 CDT: Patient will need DINA completed for infusion company for tube feeding DCP- Discharge Planning Updated by [email or web address]: Elli Dorantes on 03/02/20 7:[address] PATIENT IS UNABLE TO COMPLETE DISCHARGE PLANNING ASSESSMENT. PATIENT WAS IN A SKILLED FACILITY ? [place] ? CM TRIED TO CONTACT BOTH SONS LISTED CONTACTS AND DID NOT GET AND ANSWER. CM WILL CONTINUE TO FOLLOW AND ASSIST NEEDED WITH DISCHARGE PLANNING / NEEDS. DCPIA - Discharge Planning Initial Assessment Updated by [email or web address]: Elli Dorantes on 03/03/20 8:26 pm * Is the patient Alert and Oriented? No * How many steps to enter\exit or inside your home? * PCP DALTON DRAKE * Pharmacy [facility] * Preadmission Environment Home with Family * ADLs Partial Dependent * Partial ADLs (Assistance needed) Ambulation Bathing Dressing Eating Medication Management Toileting Transfers * Other Equipment HOME/PORTABLE 02, NEBULZER, HOSPITAL BED, W/C, WALKER * List name and contact numbers for known caregivers / representatives who currently or will assist patient after discharge: MARIA ISABEL CASTELLANOS - SON - [phone] NATHANIEL CASTELLANOS - SON -[phone] * Verbal permission to speak to the caregivers and representatives has been obtained from the patient. N/A * Community resources currently utilized Home Health * Please name any agencies selected above. [facility] [phone] * Additional services required to return to the preadmission environment? No * Can the patient safely return to the preadmission environment? Yes * Has this patient been hospitalized within the prior 30 days at any hospital? No Last DP export: 03/11/20 8:12 a Patient Name: LUIS CASTELLANOS Page [phone] at 1448 All edits/amendments must be made on the electronic document DICTATION DATE: 03/11/201447 HAND ROUTER OPERATOR: FEDE 03/11/208 RPT#: [id number] DC DATE: STATUS: ADM IN [facility] [address] [place] [address] END OF REPORT
--- NOTE | 2020-03-11 14:55 | MORECARE ---
CASE MANAGEMENT DISCHARGE SUMMARY PATIENT: LUIS CASTELLANOS UNIT: [id number] ADM DATE: 02/28/20 AGE: 84 : 35 SEX: M ROOM/BED: D.2106 AUTHOR: ELIER,DOC PHYSICIAN: REFERRING PHYSICIAN: KEYONA RAMOS MD DATE OF SERVICE: 03/11/20 Discharge Plan Patient Name: LUIS CASTELLANOS Facility: [facility]:[place] : 1935 Planned Disposition: Home with Home Health Anticipated Discharge Date: Discharge Date: Expected LOS: Initial Reviewer: [email or web address] Initial Review Date: 02/28/2020 Generated: 03/11/20 3:55 pm Comments DCP- Discharge Planning Updated by [email or web address]: Mary Ann Martínez on 03/11/20 1:[address] CM had set up tube feedings with [facility], , spoke with Kayla, faxed required information and provided son Nathaniel 's. Contacted [facility], spoke with , faxed required information. Tre Herbert called back and states he does not think he can provide all the care the patient needs. He has questions for Dr. Nash. Hospice order obtained, spoke with Nathaniel again and his choice is [facility] and he knows a nurse that works there. ANAYELI contacted Mahi with [facility] for referral. Provided required information to Irene. Mahi will CB once financials checked. Await CB. Faxed information to Krystal @[phone]. DCP- Discharge Planning Updated by [id number]: Mary Ann Martínez on 03/10/20 1:[address] Need: HHS, Scot Lift, TF's. CM contacted patient's son, Nathaniel #[phone], who is patient's primary caregiver regarding DC plans. Son states that the patient has HHS with [facility] [place], and will need a [facility] Lift, from [facility] and he has no preference for Enteral feeding. Son has private hire DRY DRUG WORKER in the home. DME at home: Hospital bed, Nebulizer, nebulizer meds, Home O2. PCP: Feng Francis. Pharmacy: [facility] [address] [facility]. CM will contact [facility] for resumption of services. DCP- Discharge Planning Updated by [id number]: Elli Dorantes on 03/03/20 7:[address] Patient Name: LUIS CASTELLANOS Admission Status: ER Accout number: [id number] Admission Date: 02-28-2020 : 1935 Admission Diagnosis:SEPSIS, UNSPECIFIED ORGANISM Attending: ALTON Current LOS: 4 Anticipated DC Date: Planned Disposition: Home with Home Health Primary Insurance: MEDICARE A & B Discharge Planning Comments: CM called and spoke with patient's son Nathaniel to complete initial dc planning assessment. CM educated patient on the CM role and verbal consent given by patient to complete assessment. Patient lives at home with her son where she is mostly total care in the last few months. At discharge plans to return home with home health ([place]) DINA completed and feels this is a safe discharge. CM discussed availability of home health, rehab services, and medical equipment. Patient has a nebulizer, home 02, hospital bed, walker, and w/c. Nathaniel denied known discharge needs at this time. CM will continue to follow and will assist as needed with dc plans/needs. Nozzle And Sleeve Worker: Elli Dorantes Appended by Elli Dorantes on 03/03/2020 20:35 CDT: Patient will need DINA completed for infusion company for tube feeding DCP- Discharge Planning Updated by [email or web address]: Elli Dorantes on 03/02/20 7:[address] PATIENT IS UNABLE TO COMPLETE DISCHARGE PLANNING ASSESSMENT. PATIENT WAS IN A SKILLED FACILITY ? [place] ? CM TRIED TO CONTACT BOTH SONS LISTED CONTACTS AND DID NOT GET AND ANSWER. CM WILL CONTINUE TO FOLLOW AND ASSIST NEEDED WITH DISCHARGE PLANNING / NEEDS. DCPIA - Discharge Planning Initial Assessment Updated by [email or web address]: Elli Dorantes on 03/03/20 8:26 pm * Is the patient Alert and Oriented? No * How many steps to enter\exit or inside your home? * PCP DALTON DRAKE * Pharmacy [facility] * Preadmission Environment Home with Family * ADLs Partial Dependent * Partial ADLs (Assistance needed) Ambulation Bathing Dressing Eating Medication Management Toileting Transfers * Other Equipment HOME/PORTABLE 02, NEBULZER, HOSPITAL BED, W/C, WALKER * List name and contact numbers for known caregivers / representatives who currently or will assist patient after discharge: MARIA ISABEL CASTELLANOS - SON - [phone] NATHANIEL CASTELLANOS - SON -[phone] * Verbal permission to speak to the caregivers and representatives has been obtained from the patient. N/A * Community resources currently utilized Home Health * Please name any agencies selected above. [facility] [phone] * Additional services required to return to the preadmission environment? No * Can the patient safely return to the preadmission environment? Yes * Has this patient been hospitalized within the prior 30 days at any hospital? No External Providers External Provider: [facility] Next Contact Date: Service Request Date: Service Type: Resolution: Reviewer: Comments: Last DP export: 03/11/20 1:48 p Patient Name: LUIS CASTELLANOS Page [phone] at 1458 All edits/amendments must be made on the electronic document DICTATION DATE: 03/11/20 1459 PIGS FEET FINISHER: FEDE 03/11/20 1458 RPT#: [id number] DC DATE: STATUS: ADM IN [facility] [address] [place] [address] END OF REPORT
[2020-03-11 14:57] VITALS: BP 148/46
--- NOTE | 2020-03-11 15:28 | MORECARE ---
CASE MANAGEMENT DISCHARGE SUMMARY PATIENT: LUIS CASTELLANOS UNIT: [id number] ADM DATE: 02/28/20 AGE: 84 : 35 SEX: M ROOM/BED: D.2106 AUTHOR: ELIER,DOC PHYSICIAN: REFERRING PHYSICIAN: KEYONA RMAOS MD DATE OF SERVICE: 03/11/20 Discharge Plan Patient Name: LUIS CASTELLANOS Facility: [facility]:[place] : 1935 Planned Disposition: Home with Home Health Anticipated Discharge Date: Discharge Date: Expected LOS: Initial Reviewer: [email or web address] Initial Review Date: 02/28/2020 Generated: 03/11/20 4:27 pm Comments DCP- Discharge Planning Updated by [email or web address]: Mary Ann Martínez on 03/11/20 2:[address] Plan: Home with [facility]. Will require ambulance transportation, due to contractures, bed bound. Please notify tre Herbert prior to DC #[phone]. CM had set up tube feedings with [facility], , spoke with Kayla, faxed required information and provided son Nathaniel 's. Contacted [facility], spoke with [facility], faxed required information. Tre Herbert called back and states he does not think he can provide all the care the patient needs. He has questions for Dr. Nash. Hospice order obtained, spoke with Hermannhuyenlora again and his choice is [facility] and he knows a nurse that works there. CM contacted Mahi with [facility] for referral. Provided required information to Irene. Mahi will CB once financials checked. Await CB. Faxed information to Krystal @[phone]. Family request patient DC 03/11, via ambulance. DCP- Discharge Planning Updated by [email or web address]: Mary Ann Martínez on 03/10/20 1:[address] Need: HHS, Scot Lift, TF's. CM contacted patient's son, Nathaniel #[phone], who is patient's primary caregiver regarding DC plans. Son states that the patient has HHS with [facility], and will need a [facility] Lift, from [facility] and he has no preference for Enteral feeding. Son has private hire [employer] GR[employer] in the home. DME at home: Hospital bed, Nebulizer, nebulizer meds, Home O2. PCP: Feng Francis. Pharmacy: [facility]. CM will contact [facility] for resumption of services. DCP- Discharge Planning Updated by [email or web address]: Elli Dorantes on 03/03/20 7:[address] Patient Name: LUIS CASTELLANOS Admission Status: ER Accout number: [id number] Admission Date: 02-28-2020 : 1935 Admission Diagnosis:SEPSIS, UNSPECIFIED ORGANISM Attending: ALTON Current LOS: 4 Anticipated DC Date: Planned Disposition: Home with Home Health Primary Insurance: MEDICARE A & B Discharge Planning Comments: CM called and spoke with patient's son Nathaniel to complete initial dc planning assessment. CM educated patient on the CM role and verbal consent given by patient to complete assessment. Patient lives at home with her son where she is mostly total care in the last few months. At discharge plans to return home with home health ([place]) DINA completed and feels this is a safe discharge. CM discussed availability of home health, rehab services, and medical equipment. Patient has a nebulizer, home 02, hospital bed, walker, and w/c. Nathaniel denied known discharge needs at this time. CM will continue to follow and will assist as needed with dc plans/needs. Scheduling Analyst: Elli Dorantes Appended by Elli Dorantes on 03/03/2020 20:35 CDT: Patient will need DINA completed for infusion company for tube feeding DCP- Discharge Planning Updated by [email or web address]: Elli Dorantes on 03/02/20 7:[address] PATIENT IS UNABLE TO COMPLETE DISCHARGE PLANNING ASSESSMENT. PATIENT WAS IN A SKILLED FACILITY ? [place] ? CM TRIED TO CONTACT BOTH SONS LISTED CONTACTS AND DID NOT GET AND ANSWER. CM WILL CONTINUE TO FOLLOW AND ASSIST NEEDED WITH DISCHARGE PLANNING / NEEDS. DCPIA - Discharge Planning Initial Assessment Updated by [email or web address]: Elli Dorantes on 03/03/20 8:26 pm * Is the patient Alert and Oriented? No * How many steps to enter\exit or inside your home? * PCP DALTON DRAKE * Pharmacy [facility] * Preadmission Environment Home with Family * ADLs Partial Dependent * Partial ADLs (Assistance needed) Ambulation Bathing Dressing Eating Medication Management Toileting Transfers * Other Equipment HOME/PORTABLE 02, NEBULZER, HOSPITAL BED, W/C, WALKER * List name and contact numbers for known caregivers / representatives who currently or will assist patient after discharge: MARIA ISABEL CASTELLANOS - SON - [phone] NATHANIEL CASTELLANOS - SON -[phone] * Verbal permission to speak to the caregivers and representatives has been obtained from the patient. N/A * Community resources currently utilized Home Health * Please name any agencies selected above. [facility] [phone] * Additional services required to return to the preadmission environment? No * Can the patient safely return to the preadmission environment? Yes * Has this patient been hospitalized within the prior 30 days at any hospital? No Coverage Notice Reviewer: [id number] - Mary Ann Martínez Notice Issued Date-Time: 03/11/2020 15:19 Notice Type: Patient Choice Letter Notice Delivered To: Family Member Relationship to Patient: Son Torpedo Specialist Name: Nathaniel Biswas Delivery Method: PHONE - Phone Renae Days: Prior Verbal Notification: Yes Recipient Understood Notice: Recipient Signature: Med Rec Note Co-signed by Attending: Coverage Notice Comment: SonNathaniel request [facility]. Last DP export: 03/11/20 1:55 p Patient Name: LUIS CASTELLANOS Page [id number] at 1528 All edits/amendments must be made on the electronic document DICTATION DATE: 03/11/20 1527 SUPERVISOR OF OFFICIALS: FEDE 03/11/20 152 RPT#: [id number] DC DATE: STATUS: ADM IN [facility] [address] [place] [address] END OF REPORT
--- NOTE | 2020-03-11 17:45 | NUR ---
PT AWAKE AND LYING ON HER L.SIDE WITH SEVERAL PILLOWS PLACED ALL AROUND HER AND UNDER BONY PROMINENCES. PT IS TALKING AND STATES SHE IS NOT HURTING ANY AND DOESNT WANT REPOSITIONED. I EXPLAINED TO PT SHE SHOULD GET TO GO HOME TOMORROW WITH HER SON AND SHE WAS VERY HAPPY TO HEAR THIS. EMPTIED PTS JADE OF 2100CC CLEAR YELLOW URINE. PROVIDED ORAL CARE WITH SOME LIP MOISTURIZOR. PT DENIES ANY CURRENT WANTS OR NEEDS. CL IN REACH, EVEN THOUGH PT PROBABLY UNABLE TO USE SHE IS CONTRACTED. WILL CPOC.
--- NOTE | 2020-03-11 19:42 | NUR ---
PT IN BED, EYES CLOSED, RESP EVEN AND UNLABORED. NO DISTRESS NOTED, CL IN REACH, SR UP X 2.
[2020-03-11 20:00] VITALS: BP 168/72
[2020-03-12 00:30] VITALS: BP 161/76
[2020-03-12 04:30] VITALS: BP 145/68
[2020-03-12 05:33] LABS: BASOPHILS 0.4 % (0-2); EOSINOPHILS 3.1 % (0-7); HEMATOCRIT 34.9 % (42.0-54.0); HEMOGLOBIN 11.1 g/dL (13.5-17.5); MCH 28.5 pg (26.0-34.0); MCHC 31.8 g/dL (31.0-37.0); MCV 89.5 fL (80.0-100.0); MONOCYTES 10.1 % (2-11); NEUTROPHILS 75.4 % (40-80); PLATELET COUNT 464 10x3/uL (130-400); RDW 14.4 % (11.5-14.5); WBC 9.4 10x3/uL (4.8-10.8)
--- NOTE | 2020-03-12 06:04 | NUR ---
I have reviewed this patient and I concur with the Shift Assessment completed by the Licensed Practical Nurse today this shift.
[2020-03-12 06:06] LABS: ANION GAP 11.1 mmol/L (8-16); CALCIUM 7.9 mg/dL (8.5-10.1); CARBON DIOXIDE 25.3 mmol/L (21.0-32.0); CREATININE - SERUM 1.1 mg/dL (0.6-1.3); MAGNESIUM - SERUM 1.6 mg/dL (1.8-2.4); POTASSIUM - SERUM 5.4 mmol/L (3.5-5.1)
[2020-03-12 08:50] VITALS: BP 142/61
--- NOTE | 2020-03-12 08:51 | MORECARE ---
CASE MANAGEMENT DISCHARGE SUMMARY PATIENT: LUIS CASTELLANOS UNIT: [id number] ADM DATE: 02/28/20 AGE: 84 : 35 SEX: M ROOM/BED: D.2106 AUTHOR: ELIER,DOC PHYSICIAN: REFERRING PHYSICIAN: KEYONA RAMOS MD DATE OF SERVICE: 03/12/20 Discharge Plan Patient Name: LUIS CASTELLANOS Facility: [facility]:[place] : 1935 Planned Disposition: Home with Home Health Anticipated Discharge Date: Discharge Date: Expected LOS: Initial Reviewer: [email or web address] Initial Review Date: 02/28/2020 Generated: 03/12/20 9:50 am Comments DCP- Discharge Planning Updated by [email or web address]: Mary Ann Martínez on 03/11/20 2:[address] Plan: Home with [facility]. Will require ambulance transportation, due to contractures, bed bound. Please notify tre Herbert prior to DC #[phone]. CM had set up tube feedings with [facility], , spoke with Kayla, faxed required information and provided son Nathaniel 's. Contacted [facility], spoke with [facility], faxed required information. Tre Herbert called back and states he does not think he can provide all the care the patient needs. He has questions for Dr. Nash. Hospice order obtained, spoke with Hermannhuyenlora again and his choice is [facility] and he knows a nurse that works there. CM contacted Mahi with [facility] for referral. Provided required information to Irene. Mahi will CB once financials checked. Await CB. Faxed information to Krystal @[phone]. Family request patient DC 03/11, via ambulance. DCP- Discharge Planning Updated by [id number]: Mary Ann Martínez on 03/10/20 1:[address] Need: HHS, Scot Lift, TF's. CM contacted patient's son, Nathaniel #[phone], who is patient's primary caregiver regarding DC plans. Son states that the patient has HHS with [facility], and will need a Scot Lift, from [facility] and he has no preference for Enteral feeding. Son has private hire OUTSIDE MACHINIST APPRENTICE in the home. DME at home: Hospital bed, Nebulizer, nebulizer meds, Home O2. PCP: Fegn Francis. Pharmacy: [email or web address]. CM will contact [facility] for resumption of services. DCP- Discharge Planning Updated by [id number]: Elli Dorantes on 03/03/20 7:[address] Patient Name: LUIS CASTELLANOS Admission Status: ER Accout number: [id number] Admission Date: 02-28-2020 : 1935 Admission Diagnosis:SEPSIS, UNSPECIFIED ORGANISM Attending: ALTON Current LOS: 4 Anticipated DC Date: Planned Disposition: Home with Home Health Primary Insurance: MEDICARE A & B Discharge Planning Comments: CM called and spoke with patient's son Nathaniel to complete initial dc planning assessment. CM educated patient on the CM role and verbal consent given by patient to complete assessment. Patient lives at home with her son where she is mostly total care in the last few months. At discharge plans to return home with home health ([place]) DINA completed and feels this is a safe discharge. CM discussed availability of home health, rehab services, and medical equipment. Patient has a nebulizer, home 02, hospital bed, walker, and w/c. Nathaniel denied known discharge needs at this time. CM will continue to follow and will assist as needed with dc plans/needs. Resident Inspector: Elli Dorantes Appended by Elli Dorantes on 03/03/2020 20:35 CDT: Patient will need DINA completed for infusion company for tube feeding DCP- Discharge Planning Updated by [email or web address]: Elli Dorantes on 03/02/20 7:[address] PATIENT IS UNABLE TO COMPLETE DISCHARGE PLANNING ASSESSMENT. PATIENT WAS IN A SKILLED FACILITY ? [place] ? CM TRIED TO CONTACT BOTH SONS LISTED CONTACTS AND DID NOT GET AND ANSWER. CM WILL CONTINUE TO FOLLOW AND ASSIST NEEDED WITH DISCHARGE PLANNING / NEEDS. DCPIA - Discharge Planning Initial Assessment Updated by [email or web address]: Elli Dorantes on 03/03/20 8:26 pm * Is the patient Alert and Oriented? No * How many steps to enter\exit or inside your home? * PCP [facility] DRAKE * Pharmacy [facility] * Preadmission Environment Home with Family * ADLs Partial Dependent * Partial ADLs (Assistance needed) Ambulation Bathing Dressing Eating Medication Management Toileting Transfers * Other Equipment HOME/PORTABLE 02, NEBULZER, HOSPITAL BED, W/C, WALKER * List name and contact numbers for known caregivers / representatives who currently or will assist patient after discharge: MARIA ISABEL CASTELLANOS - SON - [phone] NATHANIEL CASTELLANOS - SON -[phone] * Verbal permission to speak to the caregivers and representatives has been obtained from the patient. N/A * Community resources currently utilized Home Health * Please name any agencies selected above. [facility] [phone] * Additional services required to return to the preadmission environment? No * Can the patient safely return to the preadmission environment? Yes * Has this patient been hospitalized within the prior 30 days at any hospital? No External Providers External Provider: [facility] Contact Date: Service Request Date: Service Type: Resolution: Reviewer: Comments: Coverage Notice Reviewer: [email or web address] Evelyn Martínez Notice Issued Date-Time: 03/11/2020 15:19 Notice Type: Patient Choice Letter Notice Delivered To: Family Member Relationship to Patient: Son Cyber Defense Forensics Analyst Name: Nathaniel Biswas Delivery Method: PHONE - Phone Renae Days: Prior Verbal Notification: Yes Recipient Understood Notice: Recipient Signature: Med Rec Note Co-signed by Attending: Coverage Notice Comment: Nathaniel [place] request [facility]. Last DP export: 03/11/20 2:28 p Patient Name: LUIS CASTELLANOS Page [phone] at 0851 All edits/amendments must be made on the electronic document DICTATION DATE: 03/12/20849 TECHNICAL SERVICE REPRESENTATIVE: FEDE 03/12/2050 RPT#: [id number] DC DATE: STATUS: ADM IN [facility] [address] [place] [address] END OF REPORT
--- NOTE | 2020-03-12 08:57 | MORECARE ---
CASE MANAGEMENT DISCHARGE SUMMARY PATIENT: LUIS CASTELLANOS UNIT: [id number] ADM DATE: 02/28/20 AGE: 84 : 35 SEX: M ROOM/BED: D.2106 AUTHOR: ELIER,DOC PHYSICIAN: REFERRING PHYSICIAN: KEYONA RAMOS MD DATE OF SERVICE: 03/12/20 Discharge Plan Patient Name: LUIS CASTELLANOS Facility: [facility]:[place] : 1935 Planned Disposition: Home with Home Health Anticipated Discharge Date: Discharge Date: Expected LOS: Initial Reviewer: [email or web address] Initial Review Date: 02/28/2020 Generated: 03/12/20 9:57 am Comments DCP- Discharge Planning Updated by [email or web address]: Sri Hodges on 03/12/20 7:[address] Spoke with Mahi at [facility]. Mahi states she did not get the fax to review clinical. I informed her that the patient was needing tube feeding and scot lift. She states she is aware and they will arrange that. I faxed clinical and order to [facility] in [facility]. [facility] - Phone - [phone] Fax - [phone] DCP- Discharge Planning Updated by [email or web address]: Mary Ann Martínez on 03/11/20 2:[address] Plan: Home with [facility]. Will require ambulance transportation, due to contractures, bed bound. Please notify tre Herbert prior to DC #[phone]. ANAYELI had set up tube feedings with [facility], , spoke with Kayla, faxed required information and provided son Nathaniel 's. Contacted [facility] [place], spoke with financial services sales representative, faxed required information. Tre Herbert called back and states he does not think he can provide all the care the patient needs. He has questions for Dr. Nash. Hospice order obtained, spoke with Nathaniel again and his choice is [facility] and he knows a nurse that works there. ANAYELI contacted Mahi with [facility] for referral. Provided required information to Irene. Mahi will CB once financials checked. Await CB. Faxed information to Krystal @[phone]. Family request patient DC 03/11, via ambulance. DCP- Discharge Planning Updated by [email or web address]: Mary Ann Shawlroy on 03/10/20 1:[address] Need: HHS, Scot Lift, TF's. CM contacted patient's son, Nathaniel #[phone], who is patient's primary caregiver regarding DC plans. Son states that the patient has HHS with [facility] [place], and will need a Scot Lift, from [facility] and he has no preference for Enteral feeding. Son has private hire [employer] in the home. DME at home: Hospital bed, Nebulizer, nebulizer meds, Home O2. PCP: Feng Francis. Pharmacy: [facility]. CM will contact [facility] for resumption of services. DCP- Discharge Planning Updated by [email or web address]: Elli Dorantes on 03/03/20 7:[address] Patient Name: LUIS CASTELLANOS Admission Status: ER Accout number: [id number] Admission Date: 02-28-2020 : 1935 Admission Diagnosis:SEPSIS, UNSPECIFIED ORGANISM Attending: ALTON Current LOS: 4 Anticipated DC Date: Planned Disposition: Home with Home Health Primary Insurance: MEDICARE A & B Discharge Planning Comments: CM called and spoke with patient's son Nathaniel to complete initial dc planning assessment. CM educated patient on the CM role and verbal consent given by patient to complete assessment. Patient lives at home with her son where she is mostly total care in the last few months. At discharge plans to return home with home health ([place]) DINA completed and feels this is a safe discharge. CM discussed availability of home health, rehab services, and medical equipment. Patient has a nebulizer, home 02, hospital bed, walker, and w/c. Nathaniel denied known discharge needs at this time. CM will continue to follow and will assist as needed with dc plans/needs. Paraeducator: Elli Dorantes Appended by Elli Dorantes on 03/03/2020 20:35 CDT: Patient will need DINA completed for infusion company for tube feeding DCP- Discharge Planning Updated by [id number]: Elli Dorantes on 03/02/20 7:[address] PATIENT IS UNABLE TO COMPLETE DISCHARGE PLANNING ASSESSMENT. PATIENT WAS IN A SKILLED FACILITY ? [place] ? CM TRIED TO CONTACT BOTH SONS LISTED CONTACTS AND DID NOT GET AND ANSWER. CM WILL CONTINUE TO FOLLOW AND ASSIST NEEDED WITH DISCHARGE PLANNING / NEEDS. DCPIA - Discharge Planning Initial Assessment Updated by [email or web address]: Elli Dorantes on 03/03/20 8:26 pm * Is the patient Alert and Oriented? No * How many steps to enter\exit or inside your home? * PCP D[facility] DRAKE * Pharmacy [facility] * Preadmission Environment Home with Family * ADLs Partial Dependent * Partial ADLs (Assistance needed) Ambulation Bathing Dressing Eating Medication Management Toileting Transfers * Other Equipment HOME/PORTABLE 02, NEBULZER, HOSPITAL BED, W/C, WALKER * List name and contact numbers for known caregivers / representatives who currently or will assist patient after discharge: MARIA ISABEL CASTELLANOS - SON [phone] NATHANIEL CASTELLANOS - SON -[phone] * Verbal permission to speak to the caregivers and representatives has been obtained from the patient. N/A * Community resources currently utilized Home Health * Please name any agencies selected above. [facility] [phone] * Additional services required to return to the preadmission environment? No * Can the patient safely return to the preadmission environment? Yes * Has this patient been hospitalized within the prior 30 days at any hospital? No Coverage Notice Reviewer: [email or web address] Evelyn Martínez Notice Issued Date-Time: 03/11/2020 15:19 Notice Type: Patient Choice Letter Notice Delivered To: Family Member Relationship to Patient: Son Cigar Head Holer Name: Nathaniel Biswas Delivery Method: PHONE - Phone Renae Days: Prior Verbal Notification: Yes Recipient Understood Notice: Recipient Signature: Med Rec Note Co-signed by Attending: Coverage Notice Comment: SonNathaniel request [facility]. Last DP export: 03/12/20 7:50 a Patient Name: LUIS CASTELLANOS Page [phone] at 0857 All edits/amendments must be made on the electronic document DICTATION DATE: 03/12/20856 GUEST ROOM INSPECTOR: FEDE 03/12/2057 RPT#: [id number] DC DATE: STATUS: ADM IN [facility] [address] [place] [address] END OF REPORT
--- NOTE | 2020-03-12 11:40 | NUR ---
OT NOTE: BED MOB INCLUDING ROLLING SIDE TO SIDE WITH MAX ASSIST; EXTENSIVE PROM AND STRETCHING TO B LES AND L UE. EDEMA IMPROVED GREATLY IN L UE. REQUIRES EXT TIME FOR STRETCHING TO L LE DUE TO SEVERITY OF CONTRACTURE AND PAIN. PROVIDED PT WITH SEVERAL SIPS OF THICKENED WATER; PROVIDED MOUTH MOISTURIZER TO LIPS AND TONGUE; REPOSITIONED WITH MORE PILLOWS; STRETCHING OF NECK FLEXORS DARIAN KATZ, OTR/L [phone]
--- NOTE | 2020-03-12 13:13 | NUR ---
DRESSING TO LEFT LOWER LEG CHANGED. PT POSITIONED FOR COMFORT.
--- NOTE | 2020-03-12 13:50 | NUR ---
Nutrition Follow-up: Tolerating TF at goal rate. Noted hospice consult. Diet: Osmolite 1.5@ 45 mL/hr Renal, Puree, Honey Thick Liquids No new wt; last wt: 121.2# (03/03) Last BM: 03/09 per chart Labs noted: Na 133, K+ 5.4, Ca 7.9, Mg 1.6 Meds noted: Kayexalate, 1/2NS @ 30, Protonix, Carafate, Magnesium Sulfate -RD following.
--- NOTE | 2020-03-12 14:06 | MORECARE ---
CASE MANAGEMENT DISCHARGE SUMMARY PATIENT: LUIS CASTELLANOS UNIT: [id number] ADM DATE: 02/28/20 AGE: 84 : 35 SEX: M ROOM/BED: D.2106 AUTHOR: ELIER,DOC PHYSICIAN: REFERRING PHYSICIAN: KEYONA RAMOS MD DATE OF SERVICE: 03/12/20 Discharge Plan Patient Name: LUIS CASTELLANOS Facility: [facility]:[place] : 1935 Planned Disposition: Home with Home Health Anticipated Discharge Date: Discharge Date: Expected LOS: Initial Reviewer: [email or web address] Initial Review Date: 02/28/2020 Generated: 03/12/20 3:05 pm Comments DCP- Discharge Planning Updated by [email or web address]: Sri Hodges on 03/12/20 12:[address] I called Mahi with [facility]. Mahi states they have accepted patient and to call when discharged. I called patient's son, Da, he states they are set up at his brother's home and are ready. She will be discharging to home with [facility] via ambulance to [address] [place] [address]. Da states they have hired nursing assistants to help for 19/06 care. He states the oxygen, hospital bed, and everything is at this house. Brenda Crain notified. DCP- Discharge Planning Updated by [id number]: Sri Hodges on 03/12/20 7:[address] Spoke with Mahi at [facility]. Mahi states she did not get the fax to review clinical. I informed her that the patient was needing tube feeding and scot lift. She states she is aware and they will arrange that. I faxed clinical and order to [facility] in [facility]. [facility] - Phone - [phone] Fax - [phone] DCP- Discharge Planning Updated by [email or web address]: Mary Ann Martínez on 03/11/20 2:[address] Plan: Home with [facility]. Will require ambulance transportation, due to contractures, bed bound. Please notify alena Herbert prior to DC #[phone]. CM had set up tube feedings with [facility], [place], spoke with Kayla, faxed required information and provided son Nathaniel 'noe. Contacted [facility], spoke with [facility], faxed required information. Son Nathaniel called back and states he does not think he can provide all the care the patient needs. He has questions for Dr. Nash. Hospice order obtained, spoke with Nathaniel again and his choice is [facility] and he knows a nurse that works there. CM contacted Mahi with [facility] for referral. Provided required information to Irene. Mahi will CB once financials checked. Await CB. Faxed information to Krystal @[phone]. Family request patient DC 03/11, via ambulance. DCP- Discharge Planning Updated by [email or web address]: Mary Ann Martínez on 03/10/20 1:[address] Need: [facility], Scot Lift, TF's. CM contacted patient's son, Nathaniel #[phone], who is patient's primary caregiver regarding DC plans. Son states that the patient has HHS with [facility] [place], and will need a Scot Lift, from [facility] and he has no preference for Enteral feeding. Son has private hire SOFTWARE TEST SPECIALIST in the home. DME at home: Hospital bed, Nebulizer, nebulizer meds, Home O2. PCP: Feng Francis. Pharmacy: [facility]. CM will contact [facility] for resumption of services. DCP- Discharge Planning Updated by [email or web address]: Elli Dorantes on 03/03/20 7:[address] Patient Name: LUIS CASTELLANOS Admission Status: ER Accout number: [id number] Admission Date: 02-28-2020 : 1935 Admission Diagnosis:SEPSIS, UNSPECIFIED ORGANISM Attending: ALTON Current LOS: 4 Anticipated DC Date: Planned Disposition: Home with Home Health Primary Insurance: MEDICARE A & B Discharge Planning Comments: CM called and spoke with patient's son Nathaniel to complete initial dc planning assessment. CM educated patient on the CM role and verbal consent given by patient to complete assessment. Patient lives at home with her son where she is mostly total care in the last few months. At discharge plans to return home with home health ([place]) DINA completed and feels this is a safe discharge. CM discussed availability of home health, rehab services, and medical equipment. Patient has a nebulizer, home 02, hospital bed, walker, and w/c. Nathaniel denied known discharge needs at this time. CM will continue to follow and will assist as needed with dc plans/needs. Mending Carrier: Elli Dorantes Appended by Elli Dorantes on 03/03/2020 20:35 CDT: Patient will need DINA completed for infusion company for tube feeding DCP- Discharge Planning Updated by [id number]: Elli Dorantes on 03/02/20 7:[address] PATIENT IS UNABLE TO COMPLETE DISCHARGE PLANNING ASSESSMENT. PATIENT WAS IN A SKILLED FACILITY ? [facility] ? CM TRIED TO CONTACT BOTH SONS LISTED CONTACTS AND DID NOT GET AND ANSWER. CM WILL CONTINUE TO FOLLOW AND ASSIST NEEDED WITH DISCHARGE PLANNING / NEEDS. DCPIA - Discharge Planning Initial Assessment Updated by [email or web address]: Elli Dorantes on 03/03/20 8:26 pm * Is the patient Alert and Oriented? No * How many steps to enter\exit or inside your home? * PCP DALTON DRAKE * Pharmacy [facility] * Preadmission Environment Home with Family * ADLs Partial Dependent * Partial ADLs (Assistance needed) Ambulation Bathing Dressing Eating Medication Management Toileting Transfers * Other Equipment HOME/PORTABLE 02, NEBULZER, HOSPITAL BED, W/C, WALKER * List name and contact numbers for known caregivers / representatives who currently or will assist patient after discharge: MARIA ISABEL CASTELLANOS [facility] [phone] NATHANIEL CASTELLANOS [facility] -[phone] * Verbal permission to speak to the caregivers and representatives has been obtained from the patient. N/A * Community resources currently utilized Home Health * Please name any agencies selected above. [facility] [phone] * Additional services required to return to the preadmission environment? No * Can the patient safely return to the preadmission environment? Yes * Has this patient been hospitalized within the prior 30 days at any hospital? No Coverage Notice Reviewer: [id number] - Mary Ann Martínez Notice Issued Date-Time: 03/11/2020 15:19 Notice Type: Patient Choice Letter Notice Delivered To: Family Member Relationship to Patient: Son Assistant Curator Name: Nathaniel Biswas Delivery Method: PHONE - Phone Renae Days: Prior Verbal Notification: Yes Recipient Understood Notice: Recipient Signature: Med Rec Note Co-signed by Attending: Coverage Notice Comment: SonNathaniel request [facility]. Last DP export: 03/12/20 7:58 a Patient Name: LUIS CASTELLANOS Page [phone] at 1406 All edits/amendments must be made on the electronic document DICTATION DATE: 03/12/20 1405 MANAGER UNIT: FEDE 03/12/20 1405 RPT#: [id number] DC DATE: STATUS: ADM IN [facility] [address] [place] [address] END OF REPORT
[2020-03-12] MEDS ORDERED: MACRODANTIN50 MG PO (14:10)
[2020-03-12 14:11] VITALS: BP 145/61
--- NOTE | 2020-03-12 15:10 | NUR ---
OT NOTE: PT COMPLETED PROM TO L UE/LE TOLERATED. PT HAS SEEPAGE FROM DRESSINGS . NURSING NOTIFIED. PT L HAND EXHIBITED DECREASED EDEMA THIS AM. PT REQUIRED TOTAL A FOR ALL POSITIONING TASKS. PT L PATELLA HAS AREAS OF REDNESS. EXTENSIVE EFFORT MADE TO INCREASE PT COMFORT AND DECREASE FURTHER CONTRACTURES/PRESSURE AREAS. [id number] THANK YOU,RICHARD PENA
--- NOTE | 2020-03-12 15:48 | NUR ---
PT CLEANED UP AND LINENS CHANGED. DRESSINGS STILL CLEAN AND DRY. FEEDING STOPPED AND IV LOCKED DUE TO PT BEING DISCHARGED TODAY.
--- NOTE | 2020-03-12 16:27 | NUR ---
[facility] CALLED FOR TRANSPORT.
--- NOTE | 2020-03-12 19:28 | NUR ---
PT LEFT WITH [facility] TRANSPORTING HOME. PEG TUBE FLUSHED. JADE EMPTIED. SON CALLED FOR TIME LEAVING. STATES HOSPICE NURSE TO BE THERE WHEN SHE ARRIVES.
--- NOTE | 2020-03-13 12:10 | MORECARE ---
CASE MANAGEMENT DISCHARGE SUMMARY PATIENT: LUIS HICKS UNIT: [id number] ADM DATE: 02/28/20 AGE: 84 : 35 SEX: M ROOM/BED: D.2106 AUTHOR: ELIER,DOC PHYSICIAN: REFERRING PHYSICIAN: KEYONA RAMOS MD DATE OF SERVICE: 03/13/20 Discharge Plan Patient Name: LUIS HICKS Facility: [facility]:[place] : 1935 Planned Disposition: Home with Home Health Anticipated Discharge Date: Discharge Date: 03/12/2020 Expected LOS: Initial Reviewer: [email or web address] Initial Review Date: 02/28/2020 Generated: 03/13/20 1:09 pm Comments DCP- Discharge Planning Updated by [email or web address]: Mary Ann Martínez on 03/13/20 11:[address] Notified [facility] of change of plan to Hospice. DCP- Discharge Planning Updated by [email or web address]: Sri Hodges on 03/12/20 12:[address] I called Mahi with [facility]. Mahi states they have accepted patient and to call when discharged. I called patient's son, Da, he states they are set up at his brother's home and are ready. She will be discharging to home with [facility] via ambulance to [facility]. Da states they have hired nursing assistants to help for 24/7 care. He states the oxygen, hospital bed, and everything is at this house. Brenda Crain notified. DCP- Discharge Planning Updated by [email or web address]: Sri Hodges on 03/12/20 7:[address] Spoke with Mahi at [facility]. Mahi states she did not get the fax to review clinical. I informed her that the patient was needing tube feeding and scot lift. She states she is aware and they will arrange that. I faxed clinical and order to [facility] in [facility]. [facility] - Phone - [phone] Fax - [phone] DCP- Discharge Planning Updated by [id number]: Mary Ann Martínez on 03/11/20 2:[address] Plan: Home with [facility]. Will require ambulance transportation, due to contractures, bed bound. Please notify son Nathaniel prior to DC #[phone]. CM had set up tube feedings with [facility], [place], spoke with Kayla, faxed required information and provided son Nathaniel 's. Contacted [facility], spoke with registered representative, faxed required information. Son Nathaniel called back and states he does not think he can provide all the care the patient needs. He has questions for Dr. Nash. Hospice order obtained, spoke with Nathaniel again and his choice is [facility] and he knows a nurse that works there. CM contacted Mahi with [facility] for referral. Provided required information to Irene. Mahi will CB once financials checked. Await CB. Faxed information to Krystal @[phone]. Family request patient DC 03/11, via ambulance. DCP- Discharge Planning Updated by [id number]: Mary Ann Martínez on 03/10/20 1:[address] Need: [facility], Scot Lift, TF's. CM contacted patient's son, Nathaniel #[phone], who is patient's primary caregiver regarding DC plans. Son states that the patient has HHS with [facility], and will need a Scot Lift, from [facility] and he has no preference for Enteral feeding. Son has private hire COMMUNITY YOUTH SECRETARY in the home. DME at home: Hospital bed, Nebulizer, nebulizer meds, Home O2. PCP: Feng Francis. Pharmacy: [facility]. CM will contact [facility] for resumption of services. DCP- Discharge Planning Updated by [id number]: Elli Dorantes on 03/03/20 7:[address] Patient Name: LUIS HICKS Admission Status: ER Accout number: [id number] Admission Date: 02-28-2020 : 1935 Admission Diagnosis:SEPSIS, UNSPECIFIED ORGANISM Attending: ALTON Current LOS: 4 Anticipated DC Date: Planned Disposition: Home with Home Health Primary Insurance: MEDICARE A & B Discharge Planning Comments: CM called and spoke with patient's son Nathaniel to complete initial dc planning assessment. CM educated patient on the CM role and verbal consent given by patient to complete assessment. Patient lives at home with her son where she is mostly total care in the last few months. At discharge plans to return home with home health ([place]) DINA completed and feels this is a safe discharge. CM discussed availability of home health, rehab services, and medical equipment. Patient has a nebulizer, home 02, hospital bed, walker, and w/c. Nathaniel denied known discharge needs at this time. CM will continue to follow and will assist as needed with dc plans/needs. Potato Chip Cooker Machine: Elil Dorantes Appended by Elli Dorantes on 03/03/2020 20:35 CDT: Patient will need DINA completed for infusion company for tube feeding DCP- Discharge Planning Updated by [id number]: Elli Dorantes on 03/02/20 7:[address] PATIENT IS UNABLE TO COMPLETE DISCHARGE PLANNING ASSESSMENT. PATIENT WAS IN A SKILLED FACILITY ? [place] ? CM TRIED TO CONTACT BOTH SONS LISTED CONTACTS AND DID NOT GET AND ANSWER. CM WILL CONTINUE TO FOLLOW AND ASSIST NEEDED WITH DISCHARGE PLANNING / NEEDS. DCPIA - Discharge Planning Initial Assessment Updated by [id number]: Elli Dorantes on 03/03/20 8:26 pm * Is the patient Alert and Oriented? No * How many steps to enter\exit or inside your home? * PCP DALTON DRAKE * Pharmacy [facility] * Preadmission Environment Home with Family * ADLs Partial Dependent * Partial ADLs (Assistance needed) Ambulation Bathing Dressing Eating Medication Management Toileting Transfers * Other Equipment HOME/PORTABLE 02, NEBULZER, HOSPITAL BED, W/C, WALKER * List name and contact numbers for known caregivers / representatives who currently or will assist patient after discharge: MARIA ISABEL HICKS - [place] - [phone] NATHANIEL HICKS - KRANTHI -[phone] * Verbal permission to speak to the caregivers and representatives has been obtained from the patient. N/A * Community resources currently utilized Home Health * Please name any agencies selected above. [facility] [phone] * Additional services required to return to the preadmission environment? No * Can the patient safely return to the preadmission environment? Yes * Has this patient been hospitalized within the prior 30 days at any hospital? No Coverage Notice Reviewer: [id number] Evelyn Martínez Notice Issued Date-Time: 03/11/2020 15:19 Notice Type: Patient Choice Letter Notice Delivered To: Family Member Relationship to Patient: Son Council [employer] Aging Director Name: Nathaniel Biswas Delivery Method: PHONE - Phone Renae Days: Prior Verbal Notification: Yes Recipient Understood Notice: Recipient Signature: Med Rec Note Co-signed by Attending: Coverage Notice Comment: Son, Nathaniel Hicks request [facility]. Last DP export: 03/12/20 1:06 p Patient Name: LUIS HICKS Page [id number] at 1210 All edits/amendments must be made on the electronic document DICTATION DATE: 03/13/201208 SENIOR QA AUTOMATION ENGINEER: FEDE 03/13/20 120 RPT#: [id number] DC DATE:03/12/20 STATUS: DIS IN [facility] [address] [place] [address] END OF REPORT
--- NOTE | 2020-03-13 13:30 | OP ---
PATIENT NAME: LUIS CASTELLANOS MEDICAL RECORD: [id number] :[birth year] LOCATION:D.M2 D.2106 ADMISSION DATE:02/28/20 SURGEON: TAYO ZHANG MD DATE OF OPERATION: 03/03/2020 PREOPERATIVE DIAGNOSES: 1. Failure to thrive. 2. Gastrointestinal bleed. 3. Acute renal failure. 4. Congestive heart failure. 5. Chronic obstructive pulmonary disease. 6. Hypertension. POSTOPERATIVE DIAGNOSES: 1. Failure to thrive. 2. Gastrointestinal bleed. 3. Acute renal failure. 4. Congestive heart failure. 5. Chronic obstructive pulmonary disease. 6. Hypertension. PROCEDURE: PEG placement. SURGEON: Tayo Zhang MD REPORT OF PROCEDURE: An Olympus endoscope was advanced through the patient's mouth and esophagus into the stomach. We insufflated the stomach and was able to find an area to house her PEG tube in the antrum. A prep was used to clean off the left upper quadrant of the abdomen and 5 cc of 1% lidocaine with epinephrine was infused into the surrounding tissues. A skin incision was made with an 11 blade and we accessed through the abdominal wall into the gastric lumen with an Angiocath needle. A wire was advanced through the lumen of the Angiocath and once this was grasped, it was pulled through the mouth and esophagus. The PEG tube was affixed to the wire and these were all pulled through the mouth and esophagus and through the anterior abdominal wall until it rested in good position at 2 cm at the skin. We went back down with the scope and could see that the catheter was in good position with no signs of bleeding. COMPLICATIONS: None. CONDITION: Stable. ANESTHESIA: TIVA. BLOOD LOSS: Minimal. Procedure done in the ICU at the bedside. TRANSINT:[id number] Voice Confirmation ID: [id number] DOCUMENT ID: [id number] OPERATIVE REPORT [id number] LUIS CASTELLANOS TAYO ZHANG MD at 1330 CC: [id number] DICTATION DATE: 03/03/20 0856 BREWERY PUMPER: 03/03/20 1004 DIS IN 03/12/20 [id number] [place] [address]
--- NOTE | 2020-03-13 16:24 | MORECARE ---
CASE MANAGEMENT DISCHARGE SUMMARY PATIENT: LUIS CASTELLANOS UNIT: [id number] ADM DATE: 02/28/20 AGE: 84 : 35 SEX: M ROOM/BED: D.2106 AUTHOR: ELIER,DOC PHYSICIAN: REFERRING PHYSICIAN: KEYONA RAMOS MD DATE OF SERVICE: 03/13/20 Discharge Plan Patient Name: LUIS CASTELLANOS Facility: [facility]:[place] : 1935 Planned Disposition: Home with Home Health Anticipated Discharge Date: Discharge Date: 03/12/2020 Expected LOS: 0 Initial Reviewer: [email or web address] Initial Review Date: 02/28/2020 Generated: 03/13/20 5:23 pm Comments DCP- Discharge Planning Updated by [email or web address]: Mary Ann Martínez on 03/13/20 11:[address] Notified [facility] of change of plan to Hospice. DCP- Discharge Planning Updated by [email or web address]: Sri Hodges on 03/12/20 12:[address] I called Mahi with [facility]. Mahi states they have accepted patient and to call when discharged. I called patient's son, Da, he states they are set up at his brother's home and are ready. She will be discharging to home with [facility] via ambulance to [address] [facility]. Da states they have hired nursing assistants to help for 24/7 care. He states the oxygen, hospital bed, and everything is at this house. Brenda Crain notified. DCP- Discharge Planning Updated by [email or web address]: Sri Hodges on 03/12/20 7:[address] Spoke with Mahi at [facility]. Mahi states she did not get the fax to review clinical. I informed her that the patient was needing tube feeding and scot lift. She states she is aware and they will arrange that. I faxed clinical and order to [facility] in [facility]. [facility] - Phone - [phone] Fax - [phone] DCP- Discharge Planning Updated by [id number]: Mary Ann Martínez on 03/11/20 2:[address] Plan: Home with [facility]. Will require ambulance transportation, due to contractures, bed bound. Please notify son Nathaniel prior to DC #[phone]. CM had set up tube feedings with [facility], [place], spoke with Kayla, faxed required information and provided son Nathaniel 's. Contacted [facility], spoke with packaging sales representative, faxed required information. Son Nathaniel called back and states he does not think he can provide all the care the patient needs. He has questions for Dr. Nash. Hospice order obtained, spoke with Nathaniel again and his choice is [facility] and he knows a nurse that works there. CM contacted Mahi with [facility] for referral. Provided required information to Irene. Mahi will CB once financials checked. Await CB. Faxed information to Krystal @[phone]. Family request patient DC 03/11, via ambulance. DCP- Discharge Planning Updated by [id number]: Mary Ann Martínez on 03/10/20 1:[address] Need: [facility], Scot Lift, TF's. CM contacted patient's son, Nathaniel #[phone], who is patient's primary caregiver regarding DC plans. Son states that the patient has HHS with [facility] [place], and will need a Scot Lift, from [facility] and he has no preference for Enteral feeding. Son has private hire COSMETICS COUNTER MANAGER in the home. DME at home: Hospital bed, Nebulizer, nebulizer meds, Home O2. PCP: Feng Francis. Pharmacy: [facility]. CM will contact [facility] for resumption of services. DCP- Discharge Planning Updated by [id number]: Elli Dorantes on 03/03/20 7:[address] Patient Name: LUIS CASTELLANOS Admission Status: ER Accout number: [id number] Admission Date: 02-28-2020 : 1935 Admission Diagnosis:SEPSIS, UNSPECIFIED ORGANISM Attending: ALTON Current LOS: 4 Anticipated DC Date: Planned Disposition: Home with Home Health Primary Insurance: MEDICARE A & B Discharge Planning Comments: CM called and spoke with patient's son Nathaniel to complete initial dc planning assessment. CM educated patient on the CM role and verbal consent given by patient to complete assessment. Patient lives at home with her son where she is mostly total care in the last few months. At discharge plans to return home with home health ([place]) DINA completed and feels this is a safe discharge. CM discussed availability of home health, rehab services, and medical equipment. Patient has a nebulizer, home 02, hospital bed, walker, and w/c. Nathaniel denied known discharge needs at this time. CM will continue to follow and will assist as needed with dc plans/needs. Service Station Operator: Elli Dorantes Appended by Elli Dorantes on 03/03/2020 20:35 CDT: Patient will need DINA completed for infusion company for tube feeding DCP- Discharge Planning Updated by [email or web address]: Elli Dorantes on 03/02/20 7:[address] PATIENT IS UNABLE TO COMPLETE DISCHARGE PLANNING ASSESSMENT. PATIENT WAS IN A SKILLED FACILITY ? [place] ? CM TRIED TO CONTACT BOTH SONS LISTED CONTACTS AND DID NOT GET AND ANSWER. CM WILL CONTINUE TO FOLLOW AND ASSIST NEEDED WITH DISCHARGE PLANNING / NEEDS. DCPIA - Discharge Planning Initial Assessment Updated by [id number]: Elli Dorantes on 03/03/20 8:26 pm * Is the patient Alert and Oriented? No * How many steps to enter\exit or inside your home? * PCP DALTON DRAKE * Pharmacy [facility] * Preadmission Environment Home with Family * ADLs Partial Dependent * Partial ADLs (Assistance needed) Ambulation Bathing Dressing Eating Medication Management Toileting Transfers * Other Equipment HOME/PORTABLE 02, NEBULZER, HOSPITAL BED, W/C, WALKER * List name and contact numbers for known caregivers / representatives who currently or will assist patient after discharge: MARIA ISABEL CASTELLANOS - [place] - [phone] NATHANIEL CASTELLANOS - KRANTHI -[phone] * Verbal permission to speak to the caregivers and representatives has been obtained from the patient. N/A * Community resources currently utilized Home Health * Please name any agencies selected above. [facility] [phone] * Additional services required to return to the preadmission environment? No * Can the patient safely return to the preadmission environment? Yes * Has this patient been hospitalized within the prior 30 days at any hospital? No Coverage Notice Reviewer: [id number] Evelyn Martínez Notice Issued Date-Time: 03/11/2020 15:19 Notice Type: Patient Choice Letter Notice Delivered To: Family Member Relationship to Patient: Son Janitor Head Name: Nathaniel Biswas Delivery Method: PHONE - Phone Renae Days: Prior Verbal Notification: Yes Recipient Understood Notice: Recipient Signature: Med Rec Note Co-signed by Attending: Coverage Notice Comment: SonNathaniel request [facility]. Last DP export: 03/13/20 11:10 a Patient Name: LUIS CASTELLANOS Page [id number] at 1624 All edits/amendments must be made on the electronic document DICTATION DATE: 03/13/201622 ROAD MONKEY: FEDE 03/13/201622 RPT#: [id number] DC DATE:03/12/20 STATUS: DIS IN [facility] [address] [place] [address] END OF REPORT
== END 2020-03-12 19:30 | disposition home health service (06) | DRG 871 ==
LOC: D.ER 17:56 → D.ICU 18:54 → D.M2 03-03 17:45
PROVIDERS: Family Medicine; Internal Medicine Nephrology; Surgery; ADMIT Family Medicine; ATTEND Family Medicine
PROC: 0DH63UZ Insertion of Feeding Device into Stomach, Percutaneous Approach (ICD-10-PCS; principal; 2020-03-03 08:00)
DX: A41.9 Sepsis, unspecified organism (principal); E43 Unspecified severe protein-calorie malnutrition; N17.9 Acute kidney failure, unspecified; Z68.1 Body mass index [BMI] 19.9 or less, adult; K92.2 Gastrointestinal hemorrhage, unspecified; N39.0 Urinary tract infection, site not specified; A04.5 Campylobacter enteritis; D64.9 Anemia, unspecified; E78.5 Hyperlipidemia, unspecified; J44.9 Chronic obstructive pulmonary disease, unspecified; I11.0 Hypertensive heart disease with heart failure; I50.9 Heart failure, unspecified; K21.9 Gastro-esophageal reflux disease without esophagitis; E03.9 Hypothyroidism, unspecified; R62.7 Adult failure to thrive